=== PATIENT | female | born 1960 | race Caucasian/White ===

== ENCOUNTER 2018-09-29 13:52 | Inpatient (IN) | payer BC ==
[2018-09-29 15:21] LABS: ADD MAN DIFF? NO
[2018-09-29 15:27] LABS: BASOPHILS % 0.2 % (0.0-2.0); EOSINOPHILS % 0.1 % (0.0-7.0); HEMOGLOBIN 14.6 g/dl (12.0-16.0); LYMPHOCYTES # 3.1 10^3/ul (0.8-2.9); LYMPHOCYTES % 29.8 % (15.0-51.0); MEAN CORPUSCULAR HEMOGLOBIN 30.7 pg (29.0-33.0); MEAN CORPUSCULAR HGB CONC 34.8 g/dl (32.0-37.0); MEAN CORPUSCULAR VOLUME 88.4 fl (82.0-101.0); MEAN PLATELET VOLUME 8.8 fl (7.4-10.4); MONOCYTE # 0.4 10^3/ul (0.3-0.9); NEUTROPHIL # 6.8 10^3/ul (1.6-7.5); NEUTROPHILS % 65.4 % (39.0-77.0); PLATELET COUNT 282 10^3/UL (140-415); RED BLOOD COUNT 4.75 10^6/ul (4.20-5.40); RED CELL DISTRIBUTION WIDTH 12.4 % (11.5-14.5)
[2018-09-29 15:27] LABS: WHITE BLOOD COUNT 10.4 10^3/ul (4.8-10.8)
[2018-09-29 15:46] LABS: INR 0.93; PROTIME 12.6 Sec (11.9-14.9)
[2018-09-29 15:48] LABS: ANION GAP 18 (5-13); BLOOD UREA NITROGEN 14 mg/dl (7-20); CALCIUM 9.9 mg/dl (8.4-10.2); CARBON DIOXIDE 21 mmol/L (21-31); CHLORIDE 93 mmol/L (97-110); CREATININE 0.59 mg/dl (0.44-1.00); Estimated GFR > 60 mL/min (>60); GLUCOSE 155 mg/dl (70-220); POTASSIUM 3.1 mmol/L (3.5-5.1); SODIUM 132 mmol/L (135-144)
[2018-09-29 16:00] LABS: TROPONIN-I < 0.012 ng/ml (0.000-0.120)
[2018-09-29] MEDS: POTASSIUM CHLORIDE 100 ML IVPB ×2 (16:15→18:18)
[2018-09-29] MEDS: ONDANSETRON 4 MG INJ IV (17:24)
[2018-09-29] MEDS: morphine 2 MG INJ IV ×2 (17:24→23:13)
[2018-09-29] MEDS: DEXAMETHASONE 10 MG/ML 1 ML INJ IV (17:24)
[2018-09-29] MEDS ORDERED: NACL 0.9% 3 ML SYG IV (17:30)
[2018-09-29] MEDS ORDERED: ONDANSETRON 4 MG TAB PO (17:30)
[2018-09-29] MEDS: DEXTROSE 5%-0.45% NACL 1,000 ML IV (18:18)
[2018-09-29] MEDS: ACETAMINOPHEN 325 MG TAB PO (21:12)
[2018-09-29] MEDS: LEVETIRACETAM 500 MG (PMX) 100 ML IVPB (21:41)
[2018-09-29] MEDS: DEXAMETHASONE 4 MG/ML 1 ML INJ IV (22:48)
[2018-09-29] MEDS ORDERED: ONDANSETRON (ODT) 4 MG TAB ODT (23:30)
[2018-09-30] MEDS: morphine 2 MG INJ IV ×4 (03:23→18:24)
[2018-09-30 05:11] LABS: ADD MAN DIFF? NO
[2018-09-30 05:16] LABS: BASOPHILS % 0.1 % (0.0-2.0); HEMATOCRIT 39.1 % (37.0-47.0); HEMOGLOBIN 13.4 g/dl (12.0-16.0); LYMPHOCYTES # 1.1 10^3/ul (0.8-2.9); LYMPHOCYTES % 14.9 % (15.0-51.0); MEAN CORPUSCULAR HEMOGLOBIN 30.7 pg (29.0-33.0); MEAN CORPUSCULAR HGB CONC 34.3 g/dl (32.0-37.0); MEAN CORPUSCULAR VOLUME 89.5 fl (82.0-101.0); MEAN PLATELET VOLUME 8.6 fl (7.4-10.4); MONOCYTES % 0.4 % (0.0-11.0); NEUTROPHIL # 5.9 10^3/ul (1.6-7.5); NEUTROPHILS % 84.2 % (39.0-77.0); PLATELET COUNT 251 10^3/UL (140-415); RED BLOOD COUNT 4.37 10^6/ul (4.20-5.40); RED CELL DISTRIBUTION WIDTH 12.1 % (11.5-14.5)
[2018-09-30 05:16] LABS: WHITE BLOOD COUNT 7.1 10^3/ul (4.8-10.8)
[2018-09-30] MEDS: ONDANSETRON 4 MG INJ IV ×4 (05:19→22:15)
[2018-09-30 05:39] LABS: ANION GAP 17 (5-13); BLOOD UREA NITROGEN 18 mg/dl (7-20); CALCIUM 9.7 mg/dl (8.4-10.2); CARBON DIOXIDE 25 mmol/L (21-31); CHLORIDE 90 mmol/L (97-110); CREATININE 0.56 mg/dl (0.44-1.00); Estimated GFR > 60 mL/min (>60); GLUCOSE 173 mg/dl (70-220); MAGNESIUM 1.8 mg/dl (1.7-2.5); PHOSPHORUS 4.4 mg/dl (2.5-4.9); POTASSIUM 3.7 mmol/L (3.5-5.1); SODIUM 132 mmol/L (135-144)
[2018-09-30] MEDS: DEXAMETHASONE 4 MG/ML 1 ML INJ IV ×3 (06:32→21:00)
[2018-09-30] MEDS: PANTOPRAZOLE 40 MG INJ IV (06:42)
[2018-09-30] MEDS: LEVETIRACETAM 500 MG (PMX) 100 ML IVPB ×2 (08:34→20:52)
[2018-09-30] MEDS: ACETAMINOPHEN 325 MG TAB PO ×2 (08:37→16:42)
[2018-09-30 09:51] LABS: HEMOGLOBIN A1C 5.5 % (0-5.9)
[2018-09-30] MEDS: SOD CHLORIDE 0.9% 100 ML (14:27)
[2018-09-30] MEDS: IOHEXOL 100 ML (14:27)
[2018-09-30] MEDS: DEXTROSE 5%-0.45% NACL 1,000 ML IV (16:29)
[2018-10-01] MEDS: HYDROmorphONE 1 MG/ML SYG IV ×3 (00:47→22:10)
[2018-10-01] MEDS: ONDANSETRON 4 MG INJ IV ×2 (05:02→09:09)
[2018-10-01] MEDS: PANTOPRAZOLE (EC) 40 MG TAB PO (05:02)
[2018-10-01] MEDS: DEXAMETHASONE 4 MG/ML 1 ML INJ IV ×4 (05:02→23:23)
[2018-10-01 06:42] LABS: ANION GAP 9 (5-13); BLOOD UREA NITROGEN 25 mg/dl (7-20); CALCIUM 9.2 mg/dl (8.4-10.2); CARBON DIOXIDE 26 mmol/L (21-31); CHLORIDE 91 mmol/L (97-110); CREATININE 0.55 mg/dl (0.44-1.00); Estimated GFR > 60 mL/min (>60); GLUCOSE 155 mg/dl (70-220); POTASSIUM 3.3 mmol/L (3.5-5.1); SODIUM 126 mmol/L (135-144)
[2018-10-01] MEDS: KETOROLAC 15 MG INJ IV ×5 (07:32→21:32)
[2018-10-01] MEDS: LEVETIRACETAM 500 MG (PMX) 100 ML IVPB ×2 (09:39→20:37)
[2018-10-01] MEDS: POTASSIUM CHLORIDE 100 ML IVPB ×2 (10:16→10:57)
[2018-10-01] MEDS: SOD CHLORIDE 0.45% 1,000 ML IV (10:57)
[2018-10-01] MEDS: ONDANSETRON INJ 8 MG in DEXTROSE 5% 50 ML IV (12:09)
[2018-10-01 13:24] LABS: SODIUM,URINE RANDOM 164 mmol/L (30-90)
[2018-10-01 14:52] LABS: OSMOLALITY,URINE 893 mOsm/kg (250-1200)
[2018-10-01 16:39] LABS: SODIUM 122 mmol/L (135-144)
[2018-10-01] MEDS: SOD CHLORIDE 0.9% 1,000 ML IV (18:23)
[2018-10-01 19:14] LABS: SODIUM 123 mmol/L (135-144)
[2018-10-02 01:10] LABS: SODIUM 122 mmol/L (135-144)
[2018-10-02] MEDS: SODIUM CHLORIDE 1 GM TAB PO ×2 (03:38→08:11)
[2018-10-02] MEDS: KETOROLAC 15 MG INJ IV ×4 (03:39→21:08)
[2018-10-02] MEDS: PANTOPRAZOLE (EC) 40 MG TAB PO (05:24)
[2018-10-02] MEDS: DEXAMETHASONE 4 MG/ML 1 ML INJ IV ×3 (05:24→20:18)
[2018-10-02 05:46] LABS: ADD MAN DIFF? NO
[2018-10-02 05:48] LABS: WHITE BLOOD COUNT 11.5 10^3/ul (4.8-10.8)
[2018-10-02 05:48] LABS: BASOPHILS % 0.2 % (0.0-2.0); HEMATOCRIT 36.2 % (37.0-47.0); HEMOGLOBIN 12.8 g/dl (12.0-16.0); LYMPHOCYTES # 0.9 10^3/ul (0.8-2.9); LYMPHOCYTES % 7.4 % (15.0-51.0); MEAN CORPUSCULAR HEMOGLOBIN 30.8 pg (29.0-33.0); MEAN CORPUSCULAR HGB CONC 35.4 g/dl (32.0-37.0); MEAN CORPUSCULAR VOLUME 87.2 fl (82.0-101.0); MEAN PLATELET VOLUME 8.8 fl (7.4-10.4); MONOCYTE # 0.5 10^3/ul (0.3-0.9); MONOCYTES % 4.1 % (0.0-11.0); NEUTROPHILS % 87.3 % (39.0-77.0); PLATELET COUNT 260 10^3/UL (140-415); RED BLOOD COUNT 4.15 10^6/ul (4.20-5.40); RED CELL DISTRIBUTION WIDTH 11.9 % (11.5-14.5)
[2018-10-02 06:14] LABS: SODIUM 122 mmol/L (135-144)
[2018-10-02 06:18] LABS: ANION GAP 12 (5-13); BLOOD UREA NITROGEN 22 mg/dl (7-20); CALCIUM 8.9 mg/dl (8.4-10.2); CARBON DIOXIDE 22 mmol/L (21-31); CHLORIDE 89 mmol/L (97-110); CREATININE 0.48 mg/dl (0.44-1.00); Estimated GFR > 60 mL/min (>60); GLUCOSE 134 mg/dl (70-220); POTASSIUM 3.6 mmol/L (3.5-5.1); SODIUM 123 mmol/L (135-144)
[2018-10-02] MEDS: HYDROmorphONE 1 MG/ML SYG IV (06:55)
[2018-10-02 07:09] LABS: MAGNESIUM 1.9 mg/dl (1.7-2.5)
[2018-10-02] MEDS: LEVETIRACETAM 500 MG (PMX) 100 ML IVPB (08:11)
[2018-10-02 12:31] LABS: SODIUM 122 mmol/L (135-144)
[2018-10-02] MEDS: TOLVAPTAN 15 MG TABLET PO (15:52)
[2018-10-02 16:13] LABS: SODIUM 121 mmol/L (135-144)
[2018-10-02 16:17] LABS: ASPARTATE AMINO TRANSFERASE 22 IU/L (15-46)
[2018-10-02 16:17] LABS: ALANINE AMINOTRANSFERASE 25 IU/L (13-69)
[2018-10-02] MEDS ORDERED: SODIUM CHLORIDE 1 GM TAB PO (21:00)
[2018-10-02] MEDS: LEVETIRACETAM IV 500 MG in DEXTROSE 5% 100 ML IVPB (21:13)
[2018-10-02 23:19] LABS: SODIUM 132 mmol/L (135-144)
[2018-10-03] MEDS: DEXAMETHASONE 4 MG/ML 1 ML INJ IV ×4 (00:16→21:11)
[2018-10-03] MEDS: KETOROLAC 15 MG INJ IV ×2 (04:51→10:00)
[2018-10-03] MEDS: PANTOPRAZOLE (EC) 40 MG TAB PO (05:00)
[2018-10-03] MEDS: LEVETIRACETAM IV 500 MG in DEXTROSE 5% 100 ML IVPB ×2 (09:26→21:11)
[2018-10-03 09:37] LABS: SODIUM 136 mmol/L (135-144)
[2018-10-03] MEDS ORDERED: KETOROLAC 15 MG INJ IV (16:00)
[2018-10-03] MEDS: DEXTROSE 5% 1,000 ML IV (17:05)
[2018-10-03 18:06] LABS: SODIUM 139 mmol/L (135-144)
[2018-10-03 22:58] LABS: SODIUM 133 mmol/L (135-144)
[2018-10-04] MEDS: ZOLPIDEM 5 MG TAB PO ×2 (00:15→20:59)
[2018-10-04] MEDS: DEXAMETHASONE 4 MG/ML 1 ML INJ IV ×3 (05:12→21:00)
[2018-10-04] MEDS: PANTOPRAZOLE (EC) 40 MG TAB PO (05:13)
[2018-10-04 05:27] LABS: ADD MAN DIFF? NO
[2018-10-04 05:30] LABS: BASOPHILS % 0.2 % (0.0-2.0); HEMATOCRIT 43.8 % (37.0-47.0); HEMOGLOBIN 15.5 g/dl (12.0-16.0); LYMPHOCYTES # 1.2 10^3/ul (0.8-2.9); LYMPHOCYTES % 10.5 % (15.0-51.0); MEAN CORPUSCULAR HEMOGLOBIN 31.1 pg (29.0-33.0); MEAN CORPUSCULAR HGB CONC 35.4 g/dl (32.0-37.0); MEAN CORPUSCULAR VOLUME 87.8 fl (82.0-101.0); MEAN PLATELET VOLUME 8.7 fl (7.4-10.4); MONOCYTE # 0.7 10^3/ul (0.3-0.9); MONOCYTES % 6.3 % (0.0-11.0); NEUTROPHIL # 9.1 10^3/ul (1.6-7.5); NEUTROPHILS % 82.3 % (39.0-77.0); PLATELET COUNT 310 10^3/UL (140-415); RED BLOOD COUNT 4.99 10^6/ul (4.20-5.40); RED CELL DISTRIBUTION WIDTH 12.7 % (11.5-14.5)
[2018-10-04 05:30] LABS: WHITE BLOOD COUNT 11.1 10^3/ul (4.8-10.8)
[2018-10-04 06:18] LABS: ANION GAP 11 (5-13); BLOOD UREA NITROGEN 37 mg/dl (7-20); CALCIUM 9.5 mg/dl (8.4-10.2); CARBON DIOXIDE 22 mmol/L (21-31); CHLORIDE 99 mmol/L (97-110); CREATININE 0.73 mg/dl (0.44-1.00); Estimated GFR > 60 mL/min (>60); GLUCOSE 142 mg/dl (70-220); POTASSIUM 3.4 mmol/L (3.5-5.1); SODIUM 132 mmol/L (135-144)
[2018-10-04] MEDS: LEVETIRACETAM IV 500 MG in DEXTROSE 5% 100 ML IVPB (08:48)
[2018-10-04] MEDS: POTASSIUM CHLORIDE 20 MEQ POWDER FOR ORAL SOLN GTB (13:55)
[2018-10-04] MEDS: DOCUSATE SODIUM 100 MG CAP PO (16:11)
[2018-10-04] MEDS: LEVETIRACETAM 500 MG TAB PO (20:59)
[2018-10-05 05:09] LABS: ADD MAN DIFF? NO
[2018-10-05 05:19] LABS: BASOPHILS % 0.2 % (0.0-2.0); HEMATOCRIT 43.5 % (37.0-47.0); HEMOGLOBIN 14.8 g/dl (12.0-16.0); LYMPHOCYTES # 1.1 10^3/ul (0.8-2.9); LYMPHOCYTES % 10.1 % (15.0-51.0); MEAN CORPUSCULAR HEMOGLOBIN 31.2 pg (29.0-33.0); MEAN CORPUSCULAR VOLUME 91.8 fl (82.0-101.0); MEAN PLATELET VOLUME 8.7 fl (7.4-10.4); MONOCYTE # 0.6 10^3/ul (0.3-0.9); MONOCYTES % 5.9 % (0.0-11.0); NEUTROPHIL # 8.7 10^3/ul (1.6-7.5); PLATELET COUNT 299 10^3/UL (140-415); RED BLOOD COUNT 4.74 10^6/ul (4.20-5.40); RED CELL DISTRIBUTION WIDTH 12.9 % (11.5-14.5)
[2018-10-05 05:19] LABS: WHITE BLOOD COUNT 10.5 10^3/ul (4.8-10.8)
[2018-10-05] MEDS: PANTOPRAZOLE (EC) 40 MG TAB PO (05:26)
[2018-10-05] MEDS: DEXAMETHASONE 4 MG/ML 1 ML INJ IV ×3 (05:26→21:04)
[2018-10-05 05:38] LABS: ANION GAP 10 (5-13); BLOOD UREA NITROGEN 35 mg/dl (7-20); CALCIUM 9.2 mg/dl (8.4-10.2); CARBON DIOXIDE 21 mmol/L (21-31); CHLORIDE 107 mmol/L (97-110); CREATININE 0.63 mg/dl (0.44-1.00); Estimated GFR > 60 mL/min (>60); GLUCOSE 157 mg/dl (70-220); POTASSIUM 3.9 mmol/L (3.5-5.1); SODIUM 138 mmol/L (135-144)
[2018-10-05] MEDS: LEVETIRACETAM 500 MG TAB PO ×2 (08:28→21:04)
[2018-10-05] MEDS: ZOLPIDEM 5 MG TAB PO (21:04)
[2018-10-06] MEDS: PANTOPRAZOLE (EC) 40 MG TAB PO (05:09)
[2018-10-06] MEDS: DEXAMETHASONE 4 MG/ML 1 ML INJ IV ×3 (05:10→22:47)
[2018-10-06] MEDS: LEVETIRACETAM 500 MG TAB PO ×2 (08:16→21:41)
[2018-10-06] MEDS: ZOLPIDEM 5 MG TAB PO (21:41)
[2018-10-07] MEDS: DEXAMETHASONE 4 MG/ML 1 ML INJ IV ×2 (05:59→13:53)
[2018-10-07] MEDS: PANTOPRAZOLE (EC) 40 MG TAB PO (05:59)
[2018-10-07 07:03] LABS: ANION GAP 9 (5-13); BLOOD UREA NITROGEN 23 mg/dl (7-20); CALCIUM 8.9 mg/dl (8.4-10.2); CARBON DIOXIDE 26 mmol/L (21-31); CHLORIDE 101 mmol/L (97-110); CREATININE 0.58 mg/dl (0.44-1.00); Estimated GFR > 60 mL/min (>60); GLUCOSE 127 mg/dl (70-220); SODIUM 136 mmol/L (135-144)
[2018-10-07] MEDS: LEVETIRACETAM 500 MG TAB PO ×2 (08:46→20:58)
[2018-10-07 10:56] LABS: LEVETIRACETAM 14.5 mcg/mL
[2018-10-07] MEDS: DEXAMETHASONE 4 MG TAB PO (20:58)
[2018-10-07] MEDS: ZOLPIDEM 5 MG TAB PO (20:59)
[2018-10-08] MEDS: PANTOPRAZOLE (EC) 40 MG TAB PO (05:44)
[2018-10-08] MEDS: DEXAMETHASONE 4 MG TAB PO ×3 (08:52→22:40)
[2018-10-08] MEDS: LEVETIRACETAM 500 MG TAB PO ×2 (08:52→20:59)
[2018-10-08] MEDS: ACETAMINOPHEN 325 MG TAB PO ×2 (11:44→21:16)
[2018-10-09] MEDS: PANTOPRAZOLE (EC) 40 MG TAB PO (06:19)
[2018-10-09] MEDS: LEVETIRACETAM 500 MG TAB PO (10:42)
[2018-10-09] MEDS: DEXAMETHASONE 4 MG TAB PO ×2 (10:42→13:31)
== END 2018-10-09 17:47 | disposition home or self-care (01) | DRG 54 ==
LOC: 6WM 09-30 16:00 → ICU 10-02 15:00 → 2NE 10-06 18:00 → 6WM 10-03 16:20 → ICU 10-02 15:05 → E/R 13:52 → ICU 16:47
DX: C79.31 Secondary malignant neoplasm of brain (principal); G93.6 Cerebral edema; G93.41 Metabolic encephalopathy; C79.32 Secondary malignant neoplasm of cerebral meninges; E22.2 Syndrome of inappropriate secretion of antidiuretic hormone; I10 Essential (primary) hypertension; R73.03 Prediabetes; E87.6 Hypokalemia; Z90.11 Acquired absence of right breast and nipple; Z85.3 Personal history of malignant neoplasm of breast; Z79.82 Long term (current) use of aspirin
CPT/HCPCS: 36415; 70450; 70553; 71045; 71260; 74177; 77014; 77290; 77334; 77412; 80048; 80177; 83036; 83735; 83935; 84100; 84295; 84300; 84450; 84460; 84484; 85025; 85610; 85730; 97110; 97116; 97162; 97530; 99291-25

== ENCOUNTER 2018-11-25 09:12 | Emergency (ER) | payer BC ==
[2018-11-25] MEDS: ONDANSETRON (ODT) 4 MG TAB ODT (09:52)
[2018-11-25] MEDS: SOD CHLORIDE 0.9% 1,000 ML IV (09:53)
[2018-11-25] MEDS: HYDROCODONE/APAP (10/325) TAB PO (09:53)
[2018-11-25 10:01] LABS: ADD MAN DIFF? NO
[2018-11-25 10:03] LABS: BASOPHILS % 0.2 % (0.0-2.0); HEMATOCRIT 38.8 % (37.0-47.0); HEMOGLOBIN 13.3 g/dl (12.0-16.0); LYMPHOCYTES # 0.8 10^3/ul (0.8-2.9); LYMPHOCYTES % 12.6 % (15.0-51.0); MEAN CORPUSCULAR HEMOGLOBIN 31.6 pg (29.0-33.0); MEAN CORPUSCULAR HGB CONC 34.3 g/dl (32.0-37.0); MEAN CORPUSCULAR VOLUME 92.2 fl (82.0-101.0); MEAN PLATELET VOLUME 8.1 fl (7.4-10.4); MONOCYTE # 0.3 10^3/ul (0.3-0.9); MONOCYTES % 4.8 % (0.0-11.0); NEUTROPHIL # 5.1 10^3/ul (1.6-7.5); NEUTROPHILS % 77.8 % (39.0-77.0); NUCLEATED RED BLOOD CELLS # 0.1 10^3/ul (0.0-0.0); NUCLEATED RED BLOOD CELLS% 0.9 /100WBC (0.0-0.0); PLATELET COUNT 120 10^3/UL (140-415); RED BLOOD COUNT 4.21 10^6/ul (4.20-5.40); RED CELL DISTRIBUTION WIDTH 17.7 % (11.5-14.5)
[2018-11-25 10:03] LABS: WHITE BLOOD COUNT 6.5 10^3/ul (4.8-10.8)
[2018-11-25 10:24] LABS: ANION GAP 6 (5-13); BLOOD UREA NITROGEN 14 mg/dl (7-20); CALCIUM 8.7 mg/dl (8.4-10.2); CARBON DIOXIDE 30 mmol/L (21-31); CHLORIDE 95 mmol/L (97-110); CREATININE 0.46 mg/dl (0.44-1.00); Estimated GFR > 60 mL/min (>60); GLUCOSE 92 mg/dl (70-220); SODIUM 131 mmol/L (135-144)
[2018-11-25 10:27] LABS: POTASSIUM 2.9 mmol/L (3.5-5.1)
[2018-11-25] MEDS: POTASSIUM CHLORIDE (SR) 20 MEQ TAB PO (10:46)
[2018-11-25 11:21] LABS: ADD UMIC YES; UR ASCORBIC ACID NEGATIVE (NEGATIVE); UR BILIRUBIN (Dip) NEGATIVE (NEGATIVE); UR BLOOD (Dip) 1+ mg/dL (NEGATIVE); UR CLARITY CLEAR (CLEAR); UR COLOR STRAW (YELLOW); UR GLUCOSE (Dip) NEGATIVE (NEGATIVE); UR KETONES (Dip) NEGATIVE (NEGATIVE); UR LEUKOCYTE ESTERASE (Dip) NEGATIVE Leu/ul (NEGATIVE); UR NITRITE (Dip) NEGATIVE (NEGATIVE); UR RBC 2 /HPF (0-5); UR SPECIFIC GRAVITY (Dip) 1.006 (1.003-1.030); UR TOTAL PROTEIN (Dip) NEGATIVE (NEGATIVE); UR UROBILINOGEN (Dip) NEGATIVE (NEGATIVE); UR WBC 1 /HPF (0-5)
== END 2018-11-25 11:32 | disposition home or self-care (01) ==
LOC: E/R 09:12
DX: R51 Headache (principal); R53.1 Weakness; E87.6 Hypokalemia; I10 Essential (primary) hypertension
CPT/HCPCS: 36415; 70450; 80048; 81001; 85025; 86850; 86900; 86901; 99285-25

== ENCOUNTER 2018-11-25 21:59 | Inpatient (IN) | payer BC ==
[2018-11-25] MEDS: SOD CHLORIDE 0.9% 500 ML IV (23:02)
[2018-11-25] MEDS: ONDANSETRON 4 MG INJ IV (23:02)
[2018-11-25 23:07] LABS: ADD MAN DIFF? NO
[2018-11-25 23:08] LABS: ABNORMAL IP MESSAGE 1; BASOPHILS % 0.6 % (0.0-2.0); EOSINOPHILS % 0.2 % (0.0-7.0); HEMATOCRIT 34.8 % (37.0-47.0); HEMOGLOBIN 12.1 g/dl (12.0-16.0); LYMPHOCYTES # 0.4 10^3/ul (0.8-2.9); LYMPHOCYTES % 8.2 % (15.0-51.0); MEAN CORPUSCULAR HEMOGLOBIN 32.4 pg (29.0-33.0); MEAN CORPUSCULAR HGB CONC 34.8 g/dl (32.0-37.0); MEAN CORPUSCULAR VOLUME 93.3 fl (82.0-101.0); MEAN PLATELET VOLUME 7.6 fl (7.4-10.4); MONOCYTE # 0.3 10^3/ul (0.3-0.9); MONOCYTES % 5.5 % (0.0-11.0); NEUTROPHIL # 4.2 10^3/ul (1.6-7.5); NEUTROPHILS % 81.4 % (39.0-77.0); NUCLEATED RED BLOOD CELLS% 0.4 /100WBC (0.0-0.0); PLATELET COUNT 81 10^3/UL (140-415); RED BLOOD COUNT 3.73 10^6/ul (4.20-5.40)
[2018-11-25 23:08] LABS: WHITE BLOOD COUNT 5.1 10^3/ul (4.8-10.8)
[2018-11-25 23:34] LABS: ALANINE AMINOTRANSFERASE 33 IU/L (13-69); ALBUMIN 3.3 g/dl (3.3-4.9); ALBUMIN/GLOBULIN RATIO 1.32; ALKALINE PHOSPHATASE 96 IU/L (42-121); ANION GAP 10 (5-13); ASPARTATE AMINO TRANSFERASE 27 IU/L (15-46); BLOOD UREA NITROGEN 11 mg/dl (7-20); CALCIUM 8.4 mg/dl (8.4-10.2); CARBON DIOXIDE 26 mmol/L (21-31); CREATININE 0.34 mg/dl (0.44-1.00); Estimated GFR > 60 mL/min (>60); GLUCOSE 101 mg/dl (70-220); SODIUM 121 mmol/L (135-144); TOTAL PROTEIN 5.8 g/dl (6.1-8.1)
[2018-11-25 23:37] LABS: POSITIVE DIFF @See below
[2018-11-25 23:41] LABS: POTASSIUM 2.8 mmol/L (3.5-5.1)
[2018-11-25 23:42] LABS: CHLORIDE 85 mmol/L (97-110)
[2018-11-25 23:45] LABS: B-TYPE NATRIURETIC PEPTIDE 101 PG/ML (0-125); TROPONIN-I < 0.012 ng/ml (0.000-0.120)
[2018-11-26] MEDS: POTASSIUM CHLORIDE 100 ML IVPB ×4 (00:18→09:54)
[2018-11-26] MEDS ORDERED: HYDROCODONE/APAP (10/325) TAB PO (04:30)
[2018-11-26] MEDS ORDERED: NON-FORMULARY/PATIENT OWN MED (Naloxone HCl nasal spray (Narcan 4 mg/0.1 mL nasal) 4 MG) XX (04:30)
[2018-11-26] MEDS ORDERED: LAPATINIB 250 MG PO (04:30)
[2018-11-26] MEDS ORDERED: ACETAMINOPHEN 325 MG TAB PO (05:00)
[2018-11-26 06:12] LABS: B-TYPE NATRIURETIC PEPTIDE 104 PG/ML (0-125)
[2018-11-26 06:16] LABS: CK-MB 0.38 ng/ml (0.0-2.4); TROPONIN-I < 0.012 ng/ml (0.000-0.120)
[2018-11-26] MEDS: PANTOPRAZOLE 40 MG INJ IV (06:23)
[2018-11-26 06:33] LABS: CREATINE KINASE < 20 IU/L (23-200)
[2018-11-26] MEDS ORDERED: CAPECITABINE 500 MG TAB PO (09:00)
[2018-11-26] MEDS: MEMANTINE 5 MG TAB PO (09:54)
[2018-11-26 10:24] LABS: ANION GAP 7 (5-13); BLOOD UREA NITROGEN 9 mg/dl (7-20); CALCIUM 9.4 mg/dl (8.4-10.2); CARBON DIOXIDE 29 mmol/L (21-31); CHLORIDE 95 mmol/L (97-110); CREATININE 0.51 mg/dl (0.44-1.00); Estimated GFR > 60 mL/min (>60); GLUCOSE 112 mg/dl (70-220); POTASSIUM 5.1 mmol/L (3.5-5.1); SODIUM 131 mmol/L (135-144)
[2018-11-26 10:36] LABS: CK-MB 0.35 ng/ml (0.0-2.4); TROPONIN-I < 0.012 ng/ml (0.000-0.120)
[2018-11-26 10:46] LABS: CREATINE KINASE < 20 IU/L (23-200)
[2018-11-26 12:30] LABS: SODIUM,URINE RANDOM 14 mmol/L (30-90)
[2018-11-26 13:17] LABS: OSMOLALITY,URINE 111 mOsm/kg (250-1200)
[2018-11-26 19:04] LABS: SODIUM 133 mmol/L (135-144)
[2018-11-26] MEDS: METOPROLOL (XL) 25 MG TAB PO (20:14)
[2018-11-26] MEDS: ONDANSETRON 4 MG INJ IV (20:14)
[2018-11-26] MEDS: TYKERB PO (21:39)
[2018-11-26] MEDS: [UNRECOGNIZED DRUG - OTHER] PO (21:39)
[2018-11-27] MEDS: PANTOPRAZOLE (EC) 40 MG TAB PO (05:22)
[2018-11-27] MEDS: TYKERB PO ×5 (07:00→15:00)
[2018-11-27] MEDS: [UNRECOGNIZED DRUG - OTHER] PO ×5 (07:00→15:00)
[2018-11-27 08:03] LABS: ANION GAP 6 (5-13); BLOOD UREA NITROGEN 8 mg/dl (7-20); CALCIUM 8.7 mg/dl (8.4-10.2); CARBON DIOXIDE 31 mmol/L (21-31); CHLORIDE 95 mmol/L (97-110); Estimated GFR > 60 mL/min (>60); GLUCOSE 101 mg/dl (70-220); POTASSIUM 4.8 mmol/L (3.5-5.1); SODIUM 132 mmol/L (135-144)
[2018-11-27] MEDS: ONDANSETRON 4 MG INJ IV ×3 (08:04→21:34)
[2018-11-27 08:08] LABS: PHOSPHORUS 2.9 mg/dl (2.5-4.9)
[2018-11-27] MEDS: SPECIAL NON-STANDARD MEDICATION (CHEMO) PO (09:00)
[2018-11-27] MEDS: MEMANTINE 5 MG TAB PO (09:42)
[2018-11-27] MEDS ORDERED: LORAZEPAM 0.5 MG TAB PO (14:00)
[2018-11-27] MEDS ORDERED: ONDANSETRON 4 MG INJ (15:15)
[2018-11-27] MEDS: LORAZEPAM 0.5 MG TAB PO ×2 (15:19→21:34)
[2018-11-27] MEDS: METOPROLOL (XL) 25 MG TAB PO ×2 (15:21→21:34)
[2018-11-27] MEDS: ENOXAPARIN 40 MG/0.4 ML SYG SC (16:36)
[2018-11-27] MEDS: SOD CHLORIDE 0.9% 1,000 ML IV (16:39)
[2018-11-27] MEDS ORDERED: ONDANSETRON 4 MG INJ IV (18:00)
[2018-11-27 18:54] LABS: SODIUM 134 mmol/L (135-144)
[2018-11-28] MEDS: SPECIAL NON-STANDARD MEDICATION (CHEMO) PO ×5 (01:03→21:00)
[2018-11-28] MEDS: PANTOPRAZOLE (EC) 40 MG TAB PO (06:11)
[2018-11-28] MEDS: ONDANSETRON 4 MG INJ IV ×3 (06:11→20:54)
[2018-11-28] MEDS: TYKERB PO (07:21)
[2018-11-28] MEDS: [UNRECOGNIZED DRUG - OTHER] PO (07:21)
[2018-11-28 07:47] LABS: D-DIMER 1848.85 ng/ml (<460)
[2018-11-28 08:06] LABS: ANION GAP 6 (5-13); BLOOD UREA NITROGEN 7 mg/dl (7-20); CALCIUM 8.1 mg/dl (8.4-10.2); CARBON DIOXIDE 28 mmol/L (21-31); CHLORIDE 99 mmol/L (97-110); Estimated GFR > 60 mL/min (>60); GLUCOSE 89 mg/dl (70-220); POTASSIUM 3.2 mmol/L (3.5-5.1); SODIUM 133 mmol/L (135-144)
[2018-11-28] MEDS: MEMANTINE 5 MG TAB PO (09:38)
[2018-11-28] MEDS: ENOXAPARIN 40 MG/0.4 ML SYG SC (09:42)
[2018-11-28] MEDS: SOD CHLORIDE 0.9% 100 ML (11:07)
[2018-11-28] MEDS: IOHEXOL 100 ML (11:07)
[2018-11-28] MEDS: SOD CHLORIDE 0.9% 1,000 ML IV ×2 (11:34→20:54)
[2018-11-28] MEDS: POTASSIUM CHLORIDE (SR) 20 MEQ TAB PO (11:34)
[2018-11-28] MEDS ORDERED: SPECIAL NON-STANDARD MEDICATION (CHEMO) PO (12:52)
[2018-11-28] MEDS: LORAZEPAM 2 MG INJ IV (14:55)
[2018-11-28] MEDS: METOPROLOL (XL) 25 MG TAB PO (21:00)
[2018-11-29] MEDS: PANTOPRAZOLE (EC) 40 MG TAB PO (05:52)
[2018-11-29] MEDS: ONDANSETRON 4 MG INJ IV ×2 (05:52→14:11)
[2018-11-29 06:42] LABS: ADD MAN DIFF? NO
[2018-11-29 06:45] LABS: WHITE BLOOD COUNT 3.2 10^3/ul (4.8-10.8)
[2018-11-29 06:45] LABS: ABNORMAL IP MESSAGE 1; BASOPHILS % 0.3 % (0.0-2.0); HEMATOCRIT 31.1 % (37.0-47.0); HEMOGLOBIN 10.7 g/dl (12.0-16.0); LYMPHOCYTES # 0.5 10^3/ul (0.8-2.9); LYMPHOCYTES % 15.4 % (15.0-51.0); MEAN CORPUSCULAR HEMOGLOBIN 32.2 pg (29.0-33.0); MEAN CORPUSCULAR HGB CONC 34.4 g/dl (32.0-37.0); MEAN CORPUSCULAR VOLUME 93.7 fl (82.0-101.0); MEAN PLATELET VOLUME 7.7 fl (7.4-10.4); MONOCYTE # 0.2 10^3/ul (0.3-0.9); MONOCYTES % 6.9 % (0.0-11.0); NEUTROPHIL # 2.4 10^3/ul (1.6-7.5); NEUTROPHILS % 76.5 % (39.0-77.0); PLATELET COUNT 77 10^3/UL (140-415); RED BLOOD COUNT 3.32 10^6/ul (4.20-5.40); RED CELL DISTRIBUTION WIDTH 17.7 % (11.5-14.5)
[2018-11-29 07:00] LABS: POSITIVE DIFF @See below
[2018-11-29 07:12] LABS: ANION GAP 7 (5-13); BLOOD UREA NITROGEN 5 mg/dl (7-20); CALCIUM 7.8 mg/dl (8.4-10.2); CARBON DIOXIDE 25 mmol/L (21-31); CHLORIDE 99 mmol/L (97-110); CREATININE 0.42 mg/dl (0.44-1.00); Estimated GFR > 60 mL/min (>60); GLUCOSE 96 mg/dl (70-220); POTASSIUM 3.3 mmol/L (3.5-5.1); SODIUM 131 mmol/L (135-144)
[2018-11-29] MEDS: METOPROLOL (XL) 25 MG TAB PO (10:18)
[2018-11-29] MEDS: MEMANTINE 5 MG TAB PO (10:18)
[2018-11-29] MEDS: ENOXAPARIN 40 MG/0.4 ML SYG SC (10:20)
[2018-11-29] MEDS: SPECIAL NON-STANDARD MEDICATION (CHEMO) PO ×2 (10:21)
[2018-11-29] MEDS: SOD CHLORIDE 0.9% 1,000 ML IV (10:29)
[2018-11-29] MEDS: POTASSIUM CHLORIDE 20 MEQ POWDER FOR ORAL SOLN PO (15:40)
[2018-11-29] MEDS: HEPARIN (100 UNITS/ML) 5 ML SYG CATHETER (16:43)
== END 2018-11-29 16:27 | disposition home or self-care (01) | DRG 641 ==
LOC: E/R 21:59 → TEL 11-26 00:36
DX: E87.6 Hypokalemia (principal); C79.31 Secondary malignant neoplasm of brain; E22.2 Syndrome of inappropriate secretion of antidiuretic hormone; R11.2 Nausea with vomiting, unspecified; T45.1X5A Adverse effect of antineoplastic and immunosuppressive drugs, initial encounter; I10 Essential (primary) hypertension; R73.03 Prediabetes; F41.9 Anxiety disorder, unspecified; E86.0 Dehydration; E66.3 Overweight; C50.911 Malignant neoplasm of unspecified site of right female breast; Z68.28 Body mass index [BMI] 28.0-28.9, adult
CPT/HCPCS: 36415; 70552; 71045; 71275; 80048; 80053; 82550; 82553; 83735; 83880; 83935; 84100; 84295; 84300; 84443; 84484; 85025; 85378; 93005; 96374; 99285-25

== ENCOUNTER 2018-12-13 01:25 | Emergency (ER) | payer BC ==
[2018-12-13 02:30] LABS: WHITE BLOOD COUNT 4.5 10^3/ul (4.8-10.8)
[2018-12-13 02:30] LABS: HEMATOCRIT 35.7 % (37.0-47.0); HEMOGLOBIN 12.1 g/dl (12.0-16.0); MEAN CORPUSCULAR HEMOGLOBIN 32.3 pg (29.0-33.0); MEAN CORPUSCULAR HGB CONC 33.9 g/dl (32.0-37.0); MEAN CORPUSCULAR VOLUME 95.2 fl (82.0-101.0); MEAN PLATELET VOLUME 7.7 fl (7.4-10.4); PLATELET COUNT 213 10^3/UL (140-415); RED BLOOD COUNT 3.75 10^6/ul (4.20-5.40); RED CELL DISTRIBUTION WIDTH 19.4 % (11.5-14.5)
[2018-12-13] MEDS: ONDANSETRON 4 MG INJ IV (02:48)
[2018-12-13] MEDS: OXYCODONE/ACETAMINOPHEN (5/325) TAB PO (02:48)
[2018-12-13] MEDS: SOD CHLORIDE 0.9% 500 ML IV (02:48)
[2018-12-13] MEDS: KETOROLAC 15 MG INJ IV (02:48)
[2018-12-13 02:50] LABS: ALANINE AMINOTRANSFERASE 28 IU/L (13-69); ALBUMIN 3.2 g/dl (3.3-4.9); ALKALINE PHOSPHATASE 105 IU/L (42-121); ANION GAP 6 (5-13); ASPARTATE AMINO TRANSFERASE 21 IU/L (15-46); BILIRUBIN,INDIRECT 0.8 mg/dl (0-1.1); BILIRUBIN,TOTAL 0.8 mg/dl (0.2-1.3); BLOOD UREA NITROGEN 7 mg/dl (7-20); CALCIUM 9.3 mg/dl (8.4-10.2); CARBON DIOXIDE 32 mmol/L (21-31); CHLORIDE 101 mmol/L (97-110); CREATININE 0.56 mg/dl (0.44-1.00); Estimated GFR > 60 mL/min (>60); GLUCOSE 92 mg/dl (70-220); LIPASE 191 U/L (23-300); POTASSIUM 4.1 mmol/L (3.5-5.1); SODIUM 139 mmol/L (135-144); TOTAL PROTEIN 6.1 g/dl (6.1-8.1)
[2018-12-13 02:59] LABS: ADD MAN DIFF? YES
[2018-12-13 03:11] LABS: ADD UMIC YES; UR ASCORBIC ACID NEGATIVE (NEGATIVE); UR BILIRUBIN (Dip) NEGATIVE (NEGATIVE); UR BLOOD (Dip) 1+ mg/dL (NEGATIVE); UR CLARITY CLEAR (CLEAR); UR COLOR RED (YELLOW); UR GLUCOSE (Dip) NEGATIVE (NEGATIVE); UR KETONES (Dip) NEGATIVE (NEGATIVE); UR LEUKOCYTE ESTERASE (Dip) TRACE Leu/ul (NEGATIVE); UR NITRITE (Dip) NEGATIVE (NEGATIVE); UR RBC 1 /HPF (0-5); UR SPECIFIC GRAVITY (Dip) 1.004 (1.003-1.030); UR TOTAL PROTEIN (Dip) NEGATIVE (NEGATIVE); UR UROBILINOGEN (Dip) NEGATIVE (NEGATIVE); UR WBC 4 /HPF (0-5)
[2018-12-13 05:36] LABS: ANISOCYTOSIS 1+ (0-0); BASOPHILS % (M) 1 % (0-2); ERYTHROBLAST% (NRBC) (M) 3 % (0-0); LYMPHOCYTES #M 0.9 10^3/ul (0.8-2.9); LYMPHOCYTES % (M) 21 % (15-51); MICROCYTOSIS 1+ (0-0); MONOCYTE #M 0.6 10^3/ul (0.3-0.9); MONOCYTES % (M) 15 % (0-11); MYELOCYTES % (M) 2 % (0-0); PLATELET ESTIMATE NORMAL; POLYCHROMASIA 2+ (0-0); SEGMENTED NEUTROPHILS (M) % 61 % (39-77); SMUDGE%M 9 % (0-0)
== END 2018-12-13 04:24 | disposition home or self-care (01) ==
LOC: E/R 01:25
DX: C79.81 Secondary malignant neoplasm of breast (principal); I10 Essential (primary) hypertension; E11.9 Type 2 diabetes mellitus without complications; N39.0 Urinary tract infection, site not specified; G44.209 Tension-type headache, unspecified, not intractable
CPT/HCPCS: 36415; 70450; 80053; 81001; 83690; 85025; 96374; 96375; 99285-25

== ENCOUNTER 2019-01-15 20:25 | Inpatient (IN) | payer BC ==
[2019-01-15 21:25] LABS: ADD MAN DIFF? NO
[2019-01-15] MEDS: morphine 4 MG/ML VIAL IV (21:26)
[2019-01-15] MEDS: ONDANSETRON 4 MG INJ IV (21:26)
[2019-01-15] MEDS: CEFEPIME 2GM/50 ML (PMX) 50 ML IVPB (21:26)
[2019-01-15] MEDS: SODIUM CHLORIDE 0.9% 1L BAG IV* (21:26)
[2019-01-15 21:34] LABS: WHITE BLOOD COUNT 5.3 10^3/ul (4.8-10.8)
[2019-01-15 21:34] LABS: BASOPHILS % 0.2 % (0.0-2.0); EOSINOPHILS % 0.4 % (0.0-7.0); HEMATOCRIT 43.6 % (37.0-47.0); HEMOGLOBIN 14.6 g/dl (12.0-16.0); LYMPHOCYTES # 2.4 10^3/ul (0.8-2.9); LYMPHOCYTES % 44.8 % (15.0-51.0); MEAN CORPUSCULAR HEMOGLOBIN 33.1 pg (29.0-33.0); MEAN CORPUSCULAR HGB CONC 33.5 g/dl (32.0-37.0); MEAN CORPUSCULAR VOLUME 98.9 fl (82.0-101.0); MEAN PLATELET VOLUME 8.6 fl (7.4-10.4); MONOCYTE # 0.6 10^3/ul (0.3-0.9); MONOCYTES % 11.2 % (0.0-11.0); NEUTROPHIL # 2.3 10^3/ul (1.6-7.5); NEUTROPHILS % 43.2 % (39.0-77.0); PLATELET COUNT 332 10^3/UL (140-415); RED BLOOD COUNT 4.41 10^6/ul (4.20-5.40); RED CELL DISTRIBUTION WIDTH 17.8 % (11.5-14.5)
[2019-01-15 21:49] LABS: ADD UMIC YES; UR ASCORBIC ACID NEGATIVE (NEGATIVE); UR BACTERIA FEW /HPF (NONE SEEN); UR BILIRUBIN (Dip) NEGATIVE (NEGATIVE); UR BLOOD (Dip) 2+ mg/dL (NEGATIVE); UR CLARITY CLEAR (CLEAR); UR COLOR YELLOW (YELLOW); UR GLUCOSE (Dip) NEGATIVE (NEGATIVE); UR KETONES (Dip) NEGATIVE (NEGATIVE); UR LEUKOCYTE ESTERASE (Dip) 2+ Leu/ul (NEGATIVE); UR NITRITE (Dip) NEGATIVE (NEGATIVE); UR RBC 1 /HPF (0-5); UR SPECIFIC GRAVITY (Dip) 1.004 (1.003-1.030); UR TOTAL PROTEIN (Dip) NEGATIVE (NEGATIVE); UR UROBILINOGEN (Dip) NEGATIVE (NEGATIVE); UR WBC 15 /HPF (0-5)
[2019-01-15 21:54] LABS: PROTIME 12.3 Sec (11.9-14.9)
[2019-01-15 21:55] LABS: ALANINE AMINOTRANSFERASE 24 IU/L (13-69); ALBUMIN 3.7 g/dl (3.3-4.9); ALBUMIN/GLOBULIN RATIO 1.15; ALKALINE PHOSPHATASE 92 IU/L (42-121); ANION GAP 12 (5-13); ASPARTATE AMINO TRANSFERASE 38 IU/L (15-46); BILIRUBIN,INDIRECT 1.1 mg/dl (0-1.1); BILIRUBIN,TOTAL 1.1 mg/dl (0.2-1.3); BLOOD UREA NITROGEN 6 mg/dl (7-20); CALCIUM 9.4 mg/dl (8.4-10.2); CARBON DIOXIDE 25 mmol/L (21-31); CHLORIDE 98 mmol/L (97-110); CREATININE 0.58 mg/dl (0.44-1.00); Estimated GFR > 60 mL/min (>60); GLUCOSE 117 mg/dl (70-220); PARTIAL THROMBOPLASTIN TIME 26.8 Sec (23.0-35.0); POTASSIUM 3.6 mmol/L (3.5-5.1); SODIUM 135 mmol/L (135-144); TOTAL PROTEIN 6.9 g/dl (6.1-8.1)
[2019-01-15 22:03] LABS: TROPONIN-I < 0.012 ng/ml (0.000-0.120)
[2019-01-15] MEDS: VANCOMYCIN 1 GM (PMX) 250 ML IVPB (22:04)
[2019-01-15 23:26] LABS: LACTIC ACID 1.3 mmol/L (0.5-2.0)
[2019-01-15] MEDS ORDERED: ACETAMINOPHEN 325 MG TAB PO (23:30)
[2019-01-15] MEDS ORDERED: ONDANSETRON 4 MG INJ IV (23:30)
[2019-01-16 02:54] LABS: LACTIC ACID 1.4 mmol/L (0.5-2.0)
[2019-01-16] MEDS ORDERED: DOCUSATE SODIUM 100 MG CAP PO (03:00)
[2019-01-16] MEDS: CEFTRIAXONE 1 GM/50 ML (PMX) 50 ML IVPB (03:10)
[2019-01-16] MEDS: SOD CHLORIDE 0.9% 1,000 ML IV (03:10)
[2019-01-16] MEDS: ONDANSETRON 4 MG INJ IV ×2 (03:21→10:00)
[2019-01-16] MEDS ORDERED: CAPECITABINE 500 MG TAB PO ×2 (09:00)
[2019-01-16] MEDS: HYDROCODONE/APAP (5/325) TAB PO (09:58)
[2019-01-16] MEDS: MEMANTINE 5 MG TAB PO ×2 (10:00→20:42)
[2019-01-16] MEDS: PANTOPRAZOLE (EC) 40 MG TAB PO (10:03)
[2019-01-16] MEDS: XELODA 500 MG PO ×2 (13:00→20:32)
[2019-01-16] MEDS: TYKERB PO ×2 (14:00→20:32)
[2019-01-16] MEDS: METOPROLOL (XL) 25 MG TAB PO (20:42)
[2019-01-17] MEDS: CEFTRIAXONE 1 GM/50 ML (PMX) 50 ML IVPB (02:46)
[2019-01-17] MEDS: SOD CHLORIDE 0.9% 1,000 ML IV (05:51)
[2019-01-17] MEDS: PANTOPRAZOLE (EC) 40 MG TAB PO (05:52)
[2019-01-17 06:10] LABS: ADD MAN DIFF? NO
[2019-01-17 06:22] LABS: WHITE BLOOD COUNT 3.4 10^3/ul (4.8-10.8)
[2019-01-17 06:22] LABS: BASOPHILS % 0.3 % (0.0-2.0); EOSINOPHILS % 1.2 % (0.0-7.0); HEMATOCRIT 38.7 % (37.0-47.0); LYMPHOCYTES # 1.1 10^3/ul (0.8-2.9); LYMPHOCYTES % 31.7 % (15.0-51.0); MEAN CORPUSCULAR HEMOGLOBIN 33.4 pg (29.0-33.0); MEAN CORPUSCULAR HGB CONC 33.6 g/dl (32.0-37.0); MEAN CORPUSCULAR VOLUME 99.5 fl (82.0-101.0); MEAN PLATELET VOLUME 8.9 fl (7.4-10.4); MONOCYTE # 0.5 10^3/ul (0.3-0.9); MONOCYTES % 13.2 % (0.0-11.0); NEUTROPHIL # 1.8 10^3/ul (1.6-7.5); NEUTROPHILS % 53.3 % (39.0-77.0); PLATELET COUNT 253 10^3/UL (140-415); RED BLOOD COUNT 3.89 10^6/ul (4.20-5.40); RED CELL DISTRIBUTION WIDTH 17.5 % (11.5-14.5)
[2019-01-17 07:02] LABS: ANION GAP 7 (5-13); BLOOD UREA NITROGEN 2 mg/dl (7-20); CALCIUM 8.5 mg/dl (8.4-10.2); CARBON DIOXIDE 26 mmol/L (21-31); CHLORIDE 105 mmol/L (97-110); CREATININE 0.44 mg/dl (0.44-1.00); Estimated GFR > 60 mL/min (>60); GLUCOSE 88 mg/dl (70-220); SODIUM 138 mmol/L (135-144)
[2019-01-17 07:36] LABS: POTASSIUM 2.7 mmol/L (3.5-5.1)
[2019-01-17] MEDS: POTASSIUM CHLORIDE (SR) 20 MEQ TAB PO (08:57)
[2019-01-17] MEDS ORDERED: MULTIVITAMINS 30 ML CUP GTB (09:00)
[2019-01-17] MEDS: MEMANTINE 5 MG TAB PO ×2 (09:02→21:09)
[2019-01-17] MEDS: XELODA 500 MG PO ×2 (09:04→21:13)
[2019-01-17] MEDS: TYKERB PO ×3 (09:05→21:12)
[2019-01-17 15:40] LABS: POTASSIUM 3.8 mmol/L (3.5-5.1)
[2019-01-17] MEDS: METOPROLOL (XL) 25 MG TAB PO (21:14)
[2019-01-18] MEDS: SOD CHLORIDE 0.9% 1,000 ML IV (03:00)
[2019-01-18] MEDS: CEFTRIAXONE 1 GM/50 ML (PMX) 50 ML IVPB (03:08)
[2019-01-18] MEDS: ACETAMINOPHEN 325 MG TAB PO (04:41)
[2019-01-18 05:52] LABS: ADD MAN DIFF? NO
[2019-01-18 06:00] LABS: BASOPHILS % 0.3 % (0.0-2.0); EOSINOPHILS % 0.9 % (0.0-7.0); HEMATOCRIT 32.5 % (37.0-47.0); HEMOGLOBIN 10.9 g/dl (12.0-16.0); LYMPHOCYTES % 29.7 % (15.0-51.0); MEAN CORPUSCULAR HEMOGLOBIN 34.2 pg (29.0-33.0); MEAN CORPUSCULAR HGB CONC 33.5 g/dl (32.0-37.0); MEAN CORPUSCULAR VOLUME 101.9 fl (82.0-101.0); MEAN PLATELET VOLUME 8.5 fl (7.4-10.4); MONOCYTE # 0.4 10^3/ul (0.3-0.9); MONOCYTES % 10.9 % (0.0-11.0); NEUTROPHIL # 1.9 10^3/ul (1.6-7.5); NEUTROPHILS % 57.9 % (39.0-77.0); PLATELET COUNT 225 10^3/UL (140-415); RED BLOOD COUNT 3.19 10^6/ul (4.20-5.40); RED CELL DISTRIBUTION WIDTH 17.4 % (11.5-14.5)
[2019-01-18 06:00] LABS: WHITE BLOOD COUNT 3.2 10^3/ul (4.8-10.8)
[2019-01-18] MEDS: PANTOPRAZOLE (EC) 40 MG TAB PO (06:21)
[2019-01-18 06:45] LABS: ANION GAP 5 (5-13); BLOOD UREA NITROGEN 3 mg/dl (7-20); CALCIUM 7.4 mg/dl (8.4-10.2); CARBON DIOXIDE 22 mmol/L (21-31); CHLORIDE 111 mmol/L (97-110); CREATININE 0.43 mg/dl (0.44-1.00); Estimated GFR > 60 mL/min (>60); GLUCOSE 85 mg/dl (70-220); SODIUM 138 mmol/L (135-144)
[2019-01-18 06:56] LABS: POTASSIUM 2.7 mmol/L (3.5-5.1)
[2019-01-18] MEDS: MEMANTINE 5 MG TAB PO (08:26)
[2019-01-18] MEDS: TYKERB PO (08:26)
[2019-01-18] MEDS: XELODA 500 MG PO (08:26)
[2019-01-18] MEDS: POTASSIUM CHLORIDE 20 MEQ POWDER FOR ORAL SOLN PO (10:02)
== END 2019-01-18 11:20 | disposition home or self-care (01) | DRG 690 ==
LOC: MS1 23:16 → E/R 20:25 → PP2 01-16 02:25
DX: N39.0 Urinary tract infection, site not specified (principal); C79.31 Secondary malignant neoplasm of brain; E22.2 Syndrome of inappropriate secretion of antidiuretic hormone; I10 Essential (primary) hypertension; E87.6 Hypokalemia; Z91.81 History of falling; Z85.3 Personal history of malignant neoplasm of breast; Z90.11 Acquired absence of right breast and nipple
CPT/HCPCS: 36415; 70450; 71045; 72131; 74176; 80048; 80053; 81001; 83605; 84132; 84484; 85025; 85610; 85730; 87040-91; 87045; 87086; 93005; 96365; 96368; 96375; 97162; 99285-25

== ENCOUNTER 2019-02-09 20:07 | Inpatient (IN) | payer BC ==
[2019-02-09 21:29] LABS: ADD MAN DIFF? NO
[2019-02-09 21:30] LABS: WHITE BLOOD COUNT 3.7 10^3/ul (4.8-10.8)
[2019-02-09 21:30] LABS: BASOPHILS % 0.3 % (0.0-2.0); HEMOGLOBIN 12.6 g/dl (12.0-16.0); LYMPHOCYTES # 0.7 10^3/ul (0.8-2.9); LYMPHOCYTES % 18.6 % (15.0-51.0); MEAN CORPUSCULAR HEMOGLOBIN 34.4 pg (29.0-33.0); MEAN CORPUSCULAR VOLUME 98.4 fl (82.0-101.0); MEAN PLATELET VOLUME 8.4 fl (7.4-10.4); MONOCYTE # 0.4 10^3/ul (0.3-0.9); MONOCYTES % 11.9 % (0.0-11.0); NEUTROPHIL # 2.6 10^3/ul (1.6-7.5); NEUTROPHILS % 68.7 % (39.0-77.0); PLATELET COUNT 237 10^3/UL (140-415); RED BLOOD COUNT 3.66 10^6/ul (4.20-5.40); RED CELL DISTRIBUTION WIDTH 15.2 % (11.5-14.5)
[2019-02-09] MEDS: SOD CHLORIDE 0.9% 1,000 ML IV (21:31)
[2019-02-09] MEDS: HYDROmorphONE 0.5 MG/0.5 ML SYG IV (21:31)
[2019-02-09] MEDS: DIPHENHYDRAMINE 50 MG INJ IV (21:32)
[2019-02-09] MEDS: METOCLOPRAMIDE 10 MG INJ IV (21:32)
[2019-02-09 21:49] LABS: INR 1.27; PT RATIO 1.3
[2019-02-09 21:50] LABS: ANION GAP 11 (5-13); BLOOD UREA NITROGEN 8 mg/dl (7-20); CALCIUM 8.5 mg/dl (8.4-10.2); CARBON DIOXIDE 23 mmol/L (21-31); CHLORIDE 98 mmol/L (97-110); CREATININE 0.55 mg/dl (0.44-1.00); Estimated GFR > 60 mL/min (>60); GLUCOSE 122 mg/dl (70-220); SODIUM 132 mmol/L (135-144)
[2019-02-09 21:51] LABS: POTASSIUM 2.8 mmol/L (3.5-5.1)
[2019-02-09] MEDS: POTASSIUM CHLORIDE 100 ML IVPB (22:06)
[2019-02-09] MEDS: MAGNESIUM SULFATE 2 GM/50 ML 50 ML IVPB (22:06)
[2019-02-09] MEDS: POTASSIUM CHLORIDE 20 MEQ POWDER FOR ORAL SOLN PO (22:07)
[2019-02-09 22:23] LABS: PARTIAL THROMBOPLASTIN TIME > 180.0 Sec (23.0-35.0)
[2019-02-10] MEDS ORDERED: ACETAMINOPHEN 325 MG TAB PO ×2 (00:30→04:00)
[2019-02-10] MEDS ORDERED: ONDANSETRON 4 MG INJ IV ×2 (00:30→20:00)
[2019-02-10] MEDS: POTASSIUM CHLORIDE 100 ML IVPB (00:59)
[2019-02-10] MEDS ORDERED: DOCUSATE SODIUM 100 MG CAP PO (04:00)
[2019-02-10] MEDS ORDERED: MAGNESIUM HYDROXIDE 30ML CUP PO (04:00)
[2019-02-10 04:56] LABS: ADD MAN DIFF? NO
[2019-02-10 05:06] LABS: EOSINOPHILS % 0.5 % (0.0-7.0); HEMATOCRIT 34.9 % (37.0-47.0); LYMPHOCYTES % 26.1 % (15.0-51.0); MEAN CORPUSCULAR HEMOGLOBIN 34.3 pg (29.0-33.0); MEAN CORPUSCULAR HGB CONC 34.4 g/dl (32.0-37.0); MEAN CORPUSCULAR VOLUME 99.7 fl (82.0-101.0); MEAN PLATELET VOLUME 8.7 fl (7.4-10.4); MONOCYTE # 0.5 10^3/ul (0.3-0.9); MONOCYTES % 14.1 % (0.0-11.0); NEUTROPHIL # 2.2 10^3/ul (1.6-7.5); NEUTROPHILS % 58.8 % (39.0-77.0); PLATELET COUNT 222 10^3/UL (140-415); RED CELL DISTRIBUTION WIDTH 15.6 % (11.5-14.5)
[2019-02-10 05:06] LABS: WHITE BLOOD COUNT 3.8 10^3/ul (4.8-10.8)
[2019-02-10] MEDS: SOD CHLORIDE 0.9% 1,000 ML IV (05:16)
[2019-02-10 05:19] LABS: ALANINE AMINOTRANSFERASE 20 IU/L (13-69); ALBUMIN 2.7 g/dl (3.3-4.9); ALBUMIN/GLOBULIN RATIO 1.12; ALKALINE PHOSPHATASE 53 IU/L (42-121); ANION GAP 8 (5-13); ASPARTATE AMINO TRANSFERASE 22 IU/L (15-46); BILIRUBIN,INDIRECT 0.6 mg/dl (0-1.1); BILIRUBIN,TOTAL 0.6 mg/dl (0.2-1.3); BLOOD UREA NITROGEN 4 mg/dl (7-20); CALCIUM 7.7 mg/dl (8.4-10.2); CARBON DIOXIDE 20 mmol/L (21-31); CHLORIDE 113 mmol/L (97-110); CREATININE 0.44 mg/dl (0.44-1.00); Estimated GFR > 60 mL/min (>60); GLUCOSE 86 mg/dl (70-220); POTASSIUM 3.7 mmol/L (3.5-5.1); SODIUM 141 mmol/L (135-144); TOTAL PROTEIN 5.1 g/dl (6.1-8.1)
[2019-02-10] MEDS: LOSARTAN 25 MG TAB PO (08:33)
[2019-02-10] MEDS: FAMOTIDINE 20 MG TAB GTB ×2 (08:33→20:32)
[2019-02-10] MEDS: SPECIAL NON-STANDARD MEDICATION (CHEMO) PO ×4 (08:37→20:00)
[2019-02-10] MEDS: METOCLOPRAMIDE 10 MG TAB PO ×4 (08:41→20:32)
[2019-02-10] MEDS: OXYCODONE/ACETAMINOPHEN (5/325) TAB PO (14:02)
[2019-02-10] MEDS: HEPARIN (100 UNITS/ML) 5 ML SYG CATHETER (16:58)
[2019-02-10] MEDS: METOPROLOL (XL) 25 MG TAB PO (20:32)
[2019-02-10] MEDS: DEXTROSE 5%-0.45% NACL 1,000 ML IV (22:08)
[2019-02-11] MEDS: METOCLOPRAMIDE 10 MG TAB PO ×4 (07:42→20:46)
[2019-02-11] MEDS: KETOROLAC 15 MG INJ IV ×2 (07:43→19:59)
[2019-02-11] MEDS: FAMOTIDINE 20 MG TAB GTB ×2 (09:00→20:47)
[2019-02-11] MEDS: LOSARTAN 25 MG TAB PO (09:00)
[2019-02-11] MEDS: SPECIAL NON-STANDARD MEDICATION (CHEMO) PO ×4 (09:38→17:59)
[2019-02-11 11:28] LABS: ALANINE AMINOTRANSFERASE 28 IU/L (13-69); ALBUMIN 2.7 g/dl (3.3-4.9); ALBUMIN/GLOBULIN RATIO 1.03; ALKALINE PHOSPHATASE 52 IU/L (42-121); ANION GAP 6 (5-13); ASPARTATE AMINO TRANSFERASE 33 IU/L (15-46); BILIRUBIN,INDIRECT 0.7 mg/dl (0-1.1); BILIRUBIN,TOTAL 0.7 mg/dl (0.2-1.3); BLOOD UREA NITROGEN 2 mg/dl (7-20); CALCIUM 8.1 mg/dl (8.4-10.2); CARBON DIOXIDE 22 mmol/L (21-31); CHLORIDE 108 mmol/L (97-110); CREATININE 0.46 mg/dl (0.44-1.00); Estimated GFR > 60 mL/min (>60); GLUCOSE 99 mg/dl (70-220); LIPASE 31 U/L (23-300); POTASSIUM 3.1 mmol/L (3.5-5.1); SODIUM 136 mmol/L (135-144); TOTAL PROTEIN 5.3 g/dl (6.1-8.1)
[2019-02-11] MEDS ORDERED: LORAZEPAM 0.5 MG TAB PO (12:00)
[2019-02-11] MEDS: LORAZEPAM 1 MG TAB PO ×2 (12:00→23:05)
[2019-02-11] MEDS: DEXTROSE 5%-0.45% NACL 1,000 ML IV (16:46)
[2019-02-11] MEDS: METOPROLOL (XL) 25 MG TAB PO (20:47)
[2019-02-12] MEDS: SPECIAL NON-STANDARD MEDICATION (CHEMO) PO ×2 (07:50→08:54)
[2019-02-12] MEDS: FAMOTIDINE 20 MG TAB GTB (08:53)
[2019-02-12] MEDS: LOSARTAN 25 MG TAB PO (08:53)
[2019-02-12] MEDS: METOCLOPRAMIDE 10 MG TAB PO ×2 (08:53→12:20)
[2019-02-12] MEDS: KETOROLAC 15 MG INJ IV (12:20)
[2019-02-12] MEDS: DEXTROSE 5%-0.45% NACL 1,000 ML IV (12:25)
[2019-02-12] MEDS: HEPARIN (100 UNITS/ML) 5 ML SYG CATHETER (13:42)
== END 2019-02-12 13:49 | disposition home or self-care (01) | DRG 55 ==
LOC: E/R 20:07 → MS1 02-10 00:23
DX: C79.31 Secondary malignant neoplasm of brain (principal); R51 Headache; C50.911 Malignant neoplasm of unspecified site of right female breast; R11.2 Nausea with vomiting, unspecified; R73.03 Prediabetes; E87.6 Hypokalemia; I10 Essential (primary) hypertension; Z79.899 Other long term (current) drug therapy
CPT/HCPCS: 36415; 70450; 70553; 74018; 80048; 80053; 82962; 83690; 85025; 85610; 85730; 93005; 96374; 96375; 99285-25

== ENCOUNTER 2019-02-16 13:45 | Emergency (ER) | payer BC ==
[2019-02-16 15:15] LABS: URINE BLOOD (Dip) POC 2+ (NEGATIVE); URINE GLUCOSE (Dip) POC Negative (NEGATIVE); URINE KETONES (Dip) POC 3+ (NEGATIVE); URINE LEUKOCYTE EST (Dip) POC Negative (NEGATIVE); URINE NITRITE (Dip) POC Negative (NEGATIVE); URINE TOTAL PROTEIN POC Negative (NEGATIVE)
[2019-02-16 15:15] LABS: URINE PH (Dip) POC 5.5 (5.0-8.5)
[2019-02-16 15:20] LABS: ADD MAN DIFF? NO
[2019-02-16 15:32] LABS: BASOPHILS % 0.3 % (0.0-2.0); EOSINOPHILS % 0.3 % (0.0-7.0); HEMATOCRIT 37.9 % (37.0-47.0); HEMOGLOBIN 13.1 g/dl (12.0-16.0); LYMPHOCYTES # 0.7 10^3/ul (0.8-2.9); LYMPHOCYTES % 16.3 % (15.0-51.0); MEAN CORPUSCULAR HEMOGLOBIN 34.4 pg (29.0-33.0); MEAN CORPUSCULAR HGB CONC 34.6 g/dl (32.0-37.0); MEAN CORPUSCULAR VOLUME 99.5 fl (82.0-101.0); MEAN PLATELET VOLUME 8.6 fl (7.4-10.4); MONOCYTE # 0.3 10^3/ul (0.3-0.9); MONOCYTES % 7.5 % (0.0-11.0); NEUTROPHILS % 75.3 % (39.0-77.0); PLATELET COUNT 230 10^3/UL (140-415); RED BLOOD COUNT 3.81 10^6/ul (4.20-5.40); RED CELL DISTRIBUTION WIDTH 15.2 % (11.5-14.5)
[2019-02-16] MEDS: ONDANSETRON 4 MG INJ IV (15:37)
[2019-02-16] MEDS: METOCLOPRAMIDE 10 MG INJ IV (15:37)
[2019-02-16 15:38] LABS: ALANINE AMINOTRANSFERASE 34 IU/L (13-69); ALBUMIN/GLOBULIN RATIO 1.15; ALKALINE PHOSPHATASE 62 IU/L (42-121); ANION GAP 12 (5-13); ASPARTATE AMINO TRANSFERASE 31 IU/L (15-46); BILIRUBIN,INDIRECT 0.7 mg/dl (0-1.1); BILIRUBIN,TOTAL 0.7 mg/dl (0.2-1.3); BLOOD UREA NITROGEN 10 mg/dl (7-20); CALCIUM 8.7 mg/dl (8.4-10.2); CARBON DIOXIDE 20 mmol/L (21-31); CHLORIDE 102 mmol/L (97-110); CREATININE 0.47 mg/dl (0.44-1.00); Estimated GFR > 60 mL/min (>60); GLUCOSE 81 mg/dl (70-220); LIPASE 54 U/L (23-300); POTASSIUM 3.6 mmol/L (3.5-5.1); SODIUM 134 mmol/L (135-144); TOTAL PROTEIN 5.6 g/dl (6.1-8.1)
[2019-02-16] MEDS: SOD CHLORIDE 0.9% 1,000 ML IV (17:50)
== END 2019-02-16 18:45 | disposition home or self-care (01) ==
LOC: E/R 13:45
DX: D72.819 Decreased white blood cell count, unspecified (principal); C79.81 Secondary malignant neoplasm of breast; I10 Essential (primary) hypertension
CPT/HCPCS: 72128; 72131; 80053; 81003; 83690; 85025; 96374; 96375; 99285-25

== ENCOUNTER 2019-03-08 03:33 | Emergency (ER) | payer BC ==
[2019-03-08 04:03] LABS: ADD MAN DIFF? NO
[2019-03-08 04:08] LABS: WHITE BLOOD COUNT 6.6 10^3/ul (4.8-10.8)
[2019-03-08 04:08] LABS: BASOPHILS % 0.3 % (0.0-2.0); EOSINOPHILS % 0.2 % (0.0-7.0); HEMATOCRIT 43.3 % (37.0-47.0); LYMPHOCYTES # 2.2 10^3/ul (0.8-2.9); LYMPHOCYTES % 33.7 % (15.0-51.0); MEAN CORPUSCULAR HEMOGLOBIN 34.2 pg (29.0-33.0); MEAN CORPUSCULAR HGB CONC 34.6 g/dl (32.0-37.0); MEAN CORPUSCULAR VOLUME 98.9 fl (82.0-101.0); MEAN PLATELET VOLUME 8.5 fl (7.4-10.4); MONOCYTE # 0.5 10^3/ul (0.3-0.9); MONOCYTES % 7.6 % (0.0-11.0); NEUTROPHIL # 3.8 10^3/ul (1.6-7.5); NEUTROPHILS % 57.9 % (39.0-77.0); PLATELET COUNT 213 10^3/UL (140-415); RED BLOOD COUNT 4.38 10^6/ul (4.20-5.40)
[2019-03-08] MEDS: ONDANSETRON 4 MG INJ IV (04:08)
[2019-03-08] MEDS: SOD CHLORIDE 0.9% 1,000 ML IV (04:11)
[2019-03-08 04:25] LABS: ANION GAP 11 (5-13); BLOOD UREA NITROGEN 13 mg/dl (7-20); CALCIUM 9.7 mg/dl (8.4-10.2); CARBON DIOXIDE 24 mmol/L (21-31); CHLORIDE 100 mmol/L (97-110); CREATININE 0.54 mg/dl (0.44-1.00); Estimated GFR > 60 mL/min (>60); GLUCOSE 113 mg/dl (70-220); SODIUM 135 mmol/L (135-144)
[2019-03-08] MEDS: POTASSIUM CHLORIDE (SR) 20 MEQ TAB PO (04:50)
== END 2019-03-08 05:42 | disposition home or self-care (01) ==
LOC: E/R 03:33
DX: E87.6 Hypokalemia (principal); C79.31 Secondary malignant neoplasm of brain; C50.911 Malignant neoplasm of unspecified site of right female breast
CPT/HCPCS: 36415; 80048; 85025; 96374; 99284-25

== ENCOUNTER 2019-03-09 11:35 | Inpatient (IN) | payer BC ==
[2019-03-09 12:54] LABS: ADD MAN DIFF? NO
[2019-03-09 13:11] LABS: ABNORMAL IP MESSAGE 1; BASOPHILS % 0.1 % (0.0-2.0); HEMATOCRIT 39.4 % (37.0-47.0); HEMOGLOBIN 13.9 g/dl (12.0-16.0); LYMPHOCYTES # 0.5 10^3/ul (0.8-2.9); MEAN CORPUSCULAR HEMOGLOBIN 35.3 pg (29.0-33.0); MEAN CORPUSCULAR HGB CONC 35.3 g/dl (32.0-37.0); MEAN PLATELET VOLUME 8.6 fl (7.4-10.4); MONOCYTE # 0.3 10^3/ul (0.3-0.9); MONOCYTES % 4.3 % (0.0-11.0); NEUTROPHIL # 6.5 10^3/ul (1.6-7.5); NEUTROPHILS % 87.4 % (39.0-77.0); PLATELET COUNT 190 10^3/UL (140-415); RED BLOOD COUNT 3.94 10^6/ul (4.20-5.40); RED CELL DISTRIBUTION WIDTH 16.2 % (11.5-14.5)
[2019-03-09 13:11] LABS: WHITE BLOOD COUNT 7.4 10^3/ul (4.8-10.8)
[2019-03-09 13:12] LABS: POSITIVE DIFF @See below
[2019-03-09 13:15] LABS: ANION GAP 11 (5-13); BLOOD UREA NITROGEN 10 mg/dl (7-20); CARBON DIOXIDE 21 mmol/L (21-31); CHLORIDE 103 mmol/L (97-110); CREATININE 0.44 mg/dl (0.44-1.00); Estimated GFR > 60 mL/min (>60); GLUCOSE 111 mg/dl (70-220); SODIUM 135 mmol/L (135-144)
[2019-03-09 13:18] LABS: INR 0.92; PARTIAL THROMBOPLASTIN TIME 22.2 Sec (23.0-35.0); PROTIME 12.5 Sec (11.9-14.9)
[2019-03-09] MEDS: DIPHENHYDRAMINE 50 MG INJ IV (13:26)
[2019-03-09] MEDS: METOCLOPRAMIDE 10 MG INJ IV ×2 (13:26→18:19)
[2019-03-09] MEDS: SOD CHLORIDE 0.9% 1,000 ML IV (13:26)
[2019-03-09] MEDS: ACETAMINOPHEN 325 MG TAB PO (13:27)
[2019-03-09] MEDS: POTASSIUM CHLORIDE (SR) 20 MEQ TAB PO (13:32)
[2019-03-09] MEDS: DEXAMETHASONE 10 MG/ML 1 ML INJ IV (14:02)
[2019-03-09] MEDS ORDERED: ACETAMINOPHEN 325 MG TAB PO (15:00)
[2019-03-09] MEDS: ONDANSETRON 4 MG INJ IV (15:27)
[2019-03-09] MEDS ORDERED: MAGNESIUM HYDROXIDE 30ML CUP PO (16:00)
[2019-03-09] MEDS ORDERED: ONDANSETRON 4 MG INJ IV (16:00)
[2019-03-09] MEDS ORDERED: NACL 0.9% 3 ML SYG IV (16:00)
[2019-03-09 16:22] LABS: ALANINE AMINOTRANSFERASE 23 IU/L (13-69); ALBUMIN 3.3 g/dl (3.3-4.9); ALKALINE PHOSPHATASE 50 IU/L (42-121); ASPARTATE AMINO TRANSFERASE 27 IU/L (15-46); BILIRUBIN,INDIRECT 1.2 mg/dl (0-1.1); BILIRUBIN,TOTAL 1.2 mg/dl (0.2-1.3); TOTAL PROTEIN 5.9 g/dl (6.1-8.1)
[2019-03-09 17:11] LABS: AMMONIA < 9 umol/l (9-30)
[2019-03-09] MEDS: DEXTROSE 5%-0.45% NACL 1,000 ML IV (17:55)
[2019-03-09] MEDS: KETOROLAC 30 MG INJ IV (18:19)
[2019-03-09 19:14] LABS: FOLATE 9.5 ng/ml (2.8-20.0)
[2019-03-09 21:01] LABS: ADD UMIC YES; UR ASCORBIC ACID NEGATIVE (NEGATIVE); UR BILIRUBIN (Dip) NEGATIVE (NEGATIVE); UR BLOOD (Dip) 1+ mg/dL (NEGATIVE); UR CLARITY CLEAR (CLEAR); UR COLOR STRAW (YELLOW); UR GLUCOSE (Dip) 1+ mg/dL (NEGATIVE); UR KETONES (Dip) 1+ mg/dL (NEGATIVE); UR LEUKOCYTE ESTERASE (Dip) 1+ Leu/ul (NEGATIVE); UR NITRITE (Dip) NEGATIVE (NEGATIVE); UR RBC 3 /HPF (0-5); UR TOTAL PROTEIN (Dip) NEGATIVE (NEGATIVE); UR UROBILINOGEN (Dip) NEGATIVE (NEGATIVE); UR WBC 12 /HPF (0-5)
[2019-03-09] MEDS: LORAZEPAM 2 MG INJ IV (21:56)
[2019-03-10] MEDS: PANTOPRAZOLE 40 MG INJ IV (06:11)
[2019-03-10 10:13] LABS: ANION GAP 7 (5-13); BLOOD UREA NITROGEN 5 mg/dl (7-20); CALCIUM 9.1 mg/dl (8.4-10.2); CARBON DIOXIDE 24 mmol/L (21-31); CHLORIDE 107 mmol/L (97-110); CREATININE 0.46 mg/dl (0.44-1.00); Estimated GFR > 60 mL/min (>60); GLUCOSE 95 mg/dl (70-220); MAGNESIUM 1.8 mg/dl (1.7-2.5); PHOSPHORUS 2.5 mg/dl (2.5-4.9); POTASSIUM 3.6 mmol/L (3.5-5.1); SODIUM 138 mmol/L (135-144)
[2019-03-10 10:43] LABS: THYROID STIMULATING HORMONE 0.553 MIU/L (0.465-4.680)
[2019-03-10] MEDS: KETOROLAC 30 MG INJ IV ×2 (10:51→21:34)
[2019-03-10] MEDS: CEFTRIAXONE 1 GM/50 ML (PMX) 50 ML IVPB (10:55)
[2019-03-10] MEDS: ACETAMINOPHEN 325 MG TAB PO ×2 (13:20→19:31)
[2019-03-10] MEDS: DEXTROSE 5%-0.45% NACL 1,000 ML IV (13:39)
[2019-03-10] MEDS: IBUPROFEN 600 MG TAB PO (14:37)
[2019-03-10] MEDS: QUETIAPINE 25 MG TAB PO (15:21)
[2019-03-10] MEDS ORDERED: QUETIAPINE 100 MG TAB PO (17:13)
[2019-03-10] MEDS: HALOPERIDOL 5 MG INJ IM (17:22)
[2019-03-10] MEDS: OLANZAPINE (ODT) 5 MG TAB ODT (20:31)
[2019-03-11] MEDS: LORAZEPAM 2 MG INJ IV ×4 (01:22→23:00)
[2019-03-11 06:05] LABS: ADD MAN DIFF? NO
[2019-03-11 06:07] LABS: WHITE BLOOD COUNT 8.5 10^3/ul (4.8-10.8)
[2019-03-11 06:07] LABS: ABNORMAL IP MESSAGE 1; BASOPHILS % 0.1 % (0.0-2.0); HEMATOCRIT 38.6 % (37.0-47.0); HEMOGLOBIN 13.5 g/dl (12.0-16.0); LYMPHOCYTES # 0.3 10^3/ul (0.8-2.9); LYMPHOCYTES % 3.9 % (15.0-51.0); MEAN CORPUSCULAR HEMOGLOBIN 34.1 pg (29.0-33.0); MEAN CORPUSCULAR VOLUME 97.5 fl (82.0-101.0); MEAN PLATELET VOLUME 8.8 fl (7.4-10.4); MONOCYTE # 0.4 10^3/ul (0.3-0.9); MONOCYTES % 4.9 % (0.0-11.0); NEUTROPHIL # 7.7 10^3/ul (1.6-7.5); NEUTROPHILS % 90.4 % (39.0-77.0); PLATELET COUNT 192 10^3/UL (140-415); RED BLOOD COUNT 3.96 10^6/ul (4.20-5.40); RED CELL DISTRIBUTION WIDTH 15.7 % (11.5-14.5)
[2019-03-11] MEDS: HALOPERIDOL 5 MG INJ IM (06:07)
[2019-03-11] MEDS: PANTOPRAZOLE 40 MG INJ IV (06:07)
[2019-03-11 06:12] LABS: ANION GAP 14 (5-13); BLOOD UREA NITROGEN 5 mg/dl (7-20); CALCIUM 8.7 mg/dl (8.4-10.2); CARBON DIOXIDE 20 mmol/L (21-31); CHLORIDE 95 mmol/L (97-110); CREATININE 0.37 mg/dl (0.44-1.00); Estimated GFR > 60 mL/min (>60); GLUCOSE 112 mg/dl (70-220); SODIUM 129 mmol/L (135-144)
[2019-03-11 06:21] LABS: POTASSIUM 2.9 mmol/L (3.5-5.1)
[2019-03-11 06:41] LABS: POSITIVE DIFF @See below
[2019-03-11] MEDS: DEXTROSE 5%-0.45% NACL 1,000 ML IV (07:59)
[2019-03-11] MEDS: OLANZAPINE (ODT) 5 MG TAB ODT ×2 (09:00→20:38)
[2019-03-11] MEDS: LEVETIRACETAM 500 MG (PMX) 100 ML IVPB (09:21)
[2019-03-11] MEDS: LORAZEPAM 2 MG INJ IM (09:21)
[2019-03-11] MEDS: ENOXAPARIN 40 MG/0.4 ML SYG SC (09:52)
[2019-03-11] MEDS: CEFTRIAXONE 1 GM/50 ML (PMX) 50 ML IVPB (10:39)
[2019-03-11 13:17] LABS: SODIUM 128 mmol/L (135-144)
[2019-03-11 13:17] LABS: ALANINE AMINOTRANSFERASE 35 IU/L (13-69); ASPARTATE AMINO TRANSFERASE 43 IU/L (15-46)
[2019-03-11] MEDS: DEXTROSE 5%-0.9% NACL 1,000 ML IV ×2 (15:30→20:52)
[2019-03-11] MEDS: DEXAMETHASONE 4 MG/ML 1 ML INJ IV ×2 (15:40→22:29)
[2019-03-11] MEDS: TOLVAPTAN 15 MG TABLET PO (18:19)
[2019-03-11] MEDS: SOD CHLORIDE 0.9% IVPB (18:43)
[2019-03-11] MEDS: VALPROATE IVPB (18:43)
[2019-03-11] MEDS: POTASSIUM CHLORIDE 100 ML IVPB ×4 (20:31→23:13)
[2019-03-11] MEDS: hydrALAzine 20 MG INJ IV (20:47)
[2019-03-11 20:54] LABS: SODIUM 126 mmol/L (135-144)
[2019-03-11 20:56] LABS: LACTIC ACID 1.3 mmol/L (0.5-2.0)
[2019-03-11 21:00] LABS: POTASSIUM 2.3 mmol/L (3.5-5.1)
[2019-03-11 21:02] LABS: VALPROATE 98 ug/ml (50-100)
[2019-03-11 21:26] LABS: Allen Test ACCEPTAB; Arterial Base Excess 1.5 mmol/L (-3.0-3); Arterial Blood Gas Oxygen Sat 99.3 mmHG (95.0-98.0); Arterial COHb 0.2 % (0.0-3.0); Arterial Fraction of Oxyhgb 98.9 % (93.0-99.0); Arterial MetHb 0.2 % (0.0-1.5); Arterial pCO2 21.9 mmhg (35-45); MODE NASAL CANNULA; Site Left Radial
[2019-03-12] MEDS: KETOROLAC 30 MG INJ IV (00:35)
[2019-03-12] MEDS: VALPROATE INJ 250 MG in SOD CHLORIDE 0.9% 50 ML IVPB (00:40)
[2019-03-12] MEDS: LORAZEPAM 2 MG INJ IV (02:33)
[2019-03-12] MEDS: PANTOPRAZOLE 40 MG INJ IV (05:09)
[2019-03-12] MEDS: DEXAMETHASONE 4 MG/ML 1 ML INJ IV ×3 (05:09→21:45)
[2019-03-12 06:09] LABS: ADD MAN DIFF? NO
[2019-03-12 06:19] LABS: WHITE BLOOD COUNT 6.1 10^3/ul (4.8-10.8)
[2019-03-12 06:19] LABS: ABNORMAL IP MESSAGE 1; HEMATOCRIT 35.5 % (37.0-47.0); LYMPHOCYTES # 0.3 10^3/ul (0.8-2.9); LYMPHOCYTES % 4.5 % (15.0-51.0); MEAN CORPUSCULAR HEMOGLOBIN 34.7 pg (29.0-33.0); MEAN CORPUSCULAR HGB CONC 36.6 g/dl (32.0-37.0); MEAN CORPUSCULAR VOLUME 94.7 fl (82.0-101.0); MEAN PLATELET VOLUME 9.9 fl (7.4-10.4); MONOCYTE # 0.3 10^3/ul (0.3-0.9); NEUTROPHIL # 5.4 10^3/ul (1.6-7.5); NEUTROPHILS % 89.7 % (39.0-77.0); PLATELET COUNT 161 10^3/UL (140-415); RED BLOOD COUNT 3.75 10^6/ul (4.20-5.40); RED CELL DISTRIBUTION WIDTH 15.3 % (11.5-14.5)
[2019-03-12 06:37] LABS: POSITIVE DIFF @See below
[2019-03-12 06:39] LABS: ANION GAP 10 (5-13); BLOOD UREA NITROGEN 6 mg/dl (7-20); CALCIUM 8.8 mg/dl (8.4-10.2); CARBON DIOXIDE 21 mmol/L (21-31); CHLORIDE 97 mmol/L (97-110); Estimated GFR > 60 mL/min (>60); GLUCOSE 180 mg/dl (70-220); SODIUM 128 mmol/L (135-144)
[2019-03-12 06:39] LABS: VALPROATE 50 ug/ml (50-100)
[2019-03-12 06:41] LABS: MAGNESIUM 1.5 mg/dl (1.7-2.5)
[2019-03-12 06:51] LABS: POTASSIUM 2.4 mmol/L (3.5-5.1)
[2019-03-12] MEDS: POTASSIUM CHLORIDE 100 ML IVPB ×4 (08:12→16:06)
[2019-03-12] MEDS: OLANZAPINE (ODT) 5 MG TAB ODT ×2 (08:13→21:00)
[2019-03-12] MEDS: ENOXAPARIN 40 MG/0.4 ML SYG SC (09:00)
[2019-03-12] MEDS: CEFTRIAXONE 1 GM/50 ML (PMX) 50 ML IVPB (09:52)
[2019-03-12] MEDS: MAGNESIUM SULFATE 2 GM/50 ML 50 ML IVPB (09:52)
[2019-03-12] MEDS ORDERED: TPN 1,000 ML IV (10:15)
[2019-03-12 12:19] LABS: ALANINE AMINOTRANSFERASE 34 IU/L (13-69); ALBUMIN 2.9 g/dl (3.3-4.9); ALBUMIN/GLOBULIN RATIO 1.45; ALKALINE PHOSPHATASE 44 IU/L (42-121); ANION GAP 6 (5-13); ASPARTATE AMINO TRANSFERASE 29 IU/L (15-46); BILIRUBIN,INDIRECT 0.8 mg/dl (0-1.1); BILIRUBIN,TOTAL 0.8 mg/dl (0.2-1.3); BLOOD UREA NITROGEN 4 mg/dl (7-20); CALCIUM 9.2 mg/dl (8.4-10.2); CARBON DIOXIDE 22 mmol/L (21-31); CHLORIDE 104 mmol/L (97-110); CREATININE 0.35 mg/dl (0.44-1.00); Estimated GFR > 60 mL/min (>60); GLUCOSE 113 mg/dl (70-220); MAGNESIUM 1.7 mg/dl (1.7-2.5); PHOSPHORUS 2.2 mg/dl (2.5-4.9); POTASSIUM 4.3 mmol/L (3.5-5.1); SODIUM 132 mmol/L (135-144); TOTAL PROTEIN 4.9 g/dl (6.1-8.1); TRIGLYCERIDES 67 mg/dl (0-149)
[2019-03-12 12:27] LABS: PREALBUMIN 21.5 mg/dl (17.6-36.0)
[2019-03-12] MEDS: LIDOCAINE 1% (MPF) 5 ML VIAL SC (14:30)
[2019-03-12] MEDS: VALPROATE INJ 500 MG in SOD CHLORIDE 0.9% 50 ML IVPB (16:06)
[2019-03-12] MEDS: ACCU-CHEK XX (21:00)
[2019-03-12] MEDS: TPN 1,000 ML IV (21:45)
[2019-03-13] MEDS: ACCU-CHEK XX ×6 (01:00→21:00)
[2019-03-13] MEDS: VALPROATE INJ 500 MG in SOD CHLORIDE 0.9% 50 ML IVPB ×2 (01:34→12:10)
[2019-03-13] MEDS: PANTOPRAZOLE 40 MG INJ IV (05:41)
[2019-03-13] MEDS: DEXAMETHASONE 4 MG/ML 1 ML INJ IV ×3 (05:41→21:08)
[2019-03-13 06:26] LABS: ADD MAN DIFF? NO
[2019-03-13 06:31] LABS: ABNORMAL IP MESSAGE 1; HEMATOCRIT 38.9 % (37.0-47.0); HEMOGLOBIN 13.4 g/dl (12.0-16.0); LYMPHOCYTES # 0.3 10^3/ul (0.8-2.9); LYMPHOCYTES % 2.9 % (15.0-51.0); MEAN CORPUSCULAR HEMOGLOBIN 34.1 pg (29.0-33.0); MEAN CORPUSCULAR HGB CONC 34.4 g/dl (32.0-37.0); MONOCYTE # 0.7 10^3/ul (0.3-0.9); MONOCYTES % 8.2 % (0.0-11.0); NEUTROPHIL # 7.9 10^3/ul (1.6-7.5); NEUTROPHILS % 88.1 % (39.0-77.0); PLATELET COUNT 200 10^3/UL (140-415); RED BLOOD COUNT 3.93 10^6/ul (4.20-5.40); RED CELL DISTRIBUTION WIDTH 16.8 % (11.5-14.5)
[2019-03-13 06:53] LABS: POSITIVE DIFF @See below
[2019-03-13 06:59] LABS: ANION GAP 6 (5-13); BLOOD UREA NITROGEN 13 mg/dl (7-20); CALCIUM 10.3 mg/dl (8.4-10.2); CARBON DIOXIDE 21 mmol/L (21-31); CHLORIDE 109 mmol/L (97-110); CREATININE 0.47 mg/dl (0.44-1.00); Estimated GFR > 60 mL/min (>60); GLUCOSE 127 mg/dl (70-220); POTASSIUM 3.4 mmol/L (3.5-5.1); SODIUM 136 mmol/L (135-144)
[2019-03-13 07:00] LABS: MAGNESIUM 2.1 mg/dl (1.7-2.5)
[2019-03-13 07:00] LABS: PHOSPHORUS 2.2 mg/dl (2.5-4.9)
[2019-03-13 07:03] LABS: VALPROATE 73 ug/ml (50-100)
[2019-03-13] MEDS: OLANZAPINE (ODT) 5 MG TAB ODT ×2 (08:59→21:00)
[2019-03-13] MEDS: CEFTRIAXONE 1 GM/50 ML (PMX) 50 ML IVPB (09:01)
[2019-03-13] MEDS: ENOXAPARIN 40 MG/0.4 ML SYG SC (09:07)
[2019-03-13] MEDS: POTASSIUM PHOSPHATE 20 MEQ in SOD CHLORIDE 0.9% 250 ML IVPB (12:09)
[2019-03-13] MEDS: FAT EMULSION 20% 250 ML IV (17:02)
[2019-03-13] MEDS: KETOROLAC 30 MG INJ IV (22:48)
[2019-03-13] MEDS: TPN 1,000 ML IV (23:02)
[2019-03-14] MEDS: VALPROATE INJ 500 MG in SOD CHLORIDE 0.9% 50 ML IVPB ×2 (00:51→12:22)
[2019-03-14] MEDS: ACCU-CHEK XX ×6 (01:00→21:50)
[2019-03-14] MEDS: PANTOPRAZOLE 40 MG INJ IV (05:40)
[2019-03-14] MEDS: DEXAMETHASONE 4 MG/ML 1 ML INJ IV ×3 (05:40→21:58)
[2019-03-14 07:33] LABS: ANION GAP 4 (5-13); BLOOD UREA NITROGEN 21 mg/dl (7-20); CALCIUM 9.2 mg/dl (8.4-10.2); CARBON DIOXIDE 22 mmol/L (21-31); CHLORIDE 109 mmol/L (97-110); CREATININE 0.38 mg/dl (0.44-1.00); Estimated GFR > 60 mL/min (>60); GLUCOSE 128 mg/dl (70-220); PHOSPHORUS 2.4 mg/dl (2.5-4.9); POTASSIUM 3.3 mmol/L (3.5-5.1); SODIUM 135 mmol/L (135-144)
[2019-03-14] MEDS: OLANZAPINE (ODT) 5 MG TAB ODT ×2 (09:00→20:31)
[2019-03-14] MEDS: CEFTRIAXONE 1 GM/50 ML (PMX) 50 ML IVPB (09:09)
[2019-03-14] MEDS: ENOXAPARIN 40 MG/0.4 ML SYG SC (09:32)
[2019-03-14] MEDS: hydrALAzine 20 MG INJ IV (11:43)
[2019-03-14] MEDS: KETOROLAC 30 MG INJ IV ×2 (12:21→23:09)
[2019-03-14] MEDS: POTASSIUM PHOSPHATE 15 MM in SOD CHLORIDE 0.9% 250 ML IV (13:52)
[2019-03-14] MEDS: FAT EMULSION 20% 250 ML IV (16:27)
[2019-03-14] MEDS: TPN 1,000 ML IV (17:45)
[2019-03-14] MEDS ORDERED: METOCLOPRAMIDE 10 MG INJ IV ×2 (18:00)
[2019-03-14] MEDS: ACETAMINOPHEN 325 MG TAB PO (20:38)
[2019-03-15] MEDS: VALPROATE INJ 500 MG in SOD CHLORIDE 0.9% 50 ML IVPB ×2 (00:23→13:57)
[2019-03-15] MEDS: ACCU-CHEK XX ×6 (01:25→20:52)
[2019-03-15] MEDS: KETOROLAC 30 MG INJ IV ×2 (04:30→15:08)
[2019-03-15] MEDS: DEXAMETHASONE 4 MG/ML 1 ML INJ IV ×3 (05:37→21:16)
[2019-03-15] MEDS: PANTOPRAZOLE 40 MG INJ IV (05:37)
[2019-03-15] MEDS: LORAZEPAM 2 MG INJ IV ×2 (06:10→19:11)
[2019-03-15 07:29] LABS: ANION GAP 7 (5-13); BLOOD UREA NITROGEN 19 mg/dl (7-20); CALCIUM 8.8 mg/dl (8.4-10.2); CARBON DIOXIDE 24 mmol/L (21-31); CHLORIDE 104 mmol/L (97-110); CREATININE 0.35 mg/dl (0.44-1.00); Estimated GFR > 60 mL/min (>60); GLUCOSE 140 mg/dl (70-220); MAGNESIUM 1.9 mg/dl (1.7-2.5); PHOSPHORUS 2.5 mg/dl (2.5-4.9); POTASSIUM 3.1 mmol/L (3.5-5.1); SODIUM 135 mmol/L (135-144)
[2019-03-15] MEDS ORDERED: MEGESTROL (40 MG/ML) 10ML CUP PO (09:00)
[2019-03-15] MEDS: OLANZAPINE (ODT) 5 MG TAB ODT ×2 (09:00→20:52)
[2019-03-15] MEDS: CEFTRIAXONE 1 GM/50 ML (PMX) 50 ML IVPB (09:27)
[2019-03-15] MEDS: TPN 1,000 ML IV (10:38)
[2019-03-15] MEDS: ENOXAPARIN 40 MG/0.4 ML SYG SC (11:38)
[2019-03-15] MEDS: POTASSIUM CHLORIDE 50 ML IVPB ×3 (12:42→16:26)
[2019-03-15] MEDS ORDERED: POTASSIUM CHLORIDE 50 ML IVPB (13:30)
[2019-03-15] MEDS ORDERED: morphine SULFATE/PF (2 MG/2 ML) SYG IV (16:00)
[2019-03-15] MEDS: SCOPOLAMINE 1.5 MG PATCH TRANSDERM (16:25)
[2019-03-15] MEDS: FAT EMULSION 20% 250 ML IV (16:26)
[2019-03-15] MEDS: IBUPROFEN 600 MG TAB PO (18:25)
[2019-03-15] MEDS: hydrALAzine 20 MG INJ IV (23:51)
[2019-03-16] MEDS: IBUPROFEN 600 MG TAB PO ×2 (00:20→15:59)
[2019-03-16] MEDS: ACCU-CHEK XX ×6 (01:00→21:23)
[2019-03-16] MEDS: VALPROATE INJ 500 MG in SOD CHLORIDE 0.9% 50 ML IVPB ×2 (01:08→13:19)
[2019-03-16] MEDS: LORAZEPAM 2 MG INJ IV ×2 (02:53→19:49)
[2019-03-16] MEDS: DEXAMETHASONE 4 MG/ML 1 ML INJ IV ×3 (05:07→21:21)
[2019-03-16] MEDS: TPN 1,000 ML IV ×3 (05:07→22:42)
[2019-03-16] MEDS: PANTOPRAZOLE 40 MG INJ IV (05:07)
[2019-03-16 06:24] LABS: ANION GAP 12 (5-13); BLOOD UREA NITROGEN 18 mg/dl (7-20); CALCIUM 8.7 mg/dl (8.4-10.2); CARBON DIOXIDE 20 mmol/L (21-31); CHLORIDE 99 mmol/L (97-110); CREATININE 0.25 mg/dl (0.44-1.00); Estimated GFR > 60 mL/min (>60); GLUCOSE 217 mg/dl (70-220); MAGNESIUM 1.6 mg/dl (1.7-2.5); PHOSPHORUS 2.3 mg/dl (2.5-4.9); SODIUM 131 mmol/L (135-144)
[2019-03-16] MEDS: CEFTRIAXONE 1 GM/50 ML (PMX) 50 ML IVPB (09:56)
[2019-03-16] MEDS: OLANZAPINE (ODT) 5 MG TAB ODT ×2 (09:57→21:00)
[2019-03-16] MEDS: MAGNESIUM SULFATE 2 GM/50 ML 50 ML IVPB (10:44)
[2019-03-16] MEDS: KETOROLAC 30 MG INJ IV (11:22)
[2019-03-16] MEDS ORDERED: GLUCAGON 1 MG INJ IM (12:00)
[2019-03-16] MEDS ORDERED: DEXTROSE 50% 50 ML SYRINGE IV ×2 (12:00)
[2019-03-16] MEDS ORDERED: GLUCOSE GEL 15 GRAM TUBE BUCCAL (12:00)
[2019-03-16] MEDS ORDERED: GLUCOSE GEL 15 GRAM TUBE PO ×2 (12:00)
[2019-03-16] MEDS: POTASSIUM PHOSPHATE 20 MEQ in SOD CHLORIDE 0.9% 250 ML IVPB (15:59)
[2019-03-16] MEDS: FAT EMULSION 20% 250 ML IV (16:54)
[2019-03-16] MEDS: INSULIN ASPART [NOVOLOG] 3 ML PEN SC ×2 (17:30→21:22)
[2019-03-16] MEDS: hydrALAzine 20 MG INJ IV (20:38)
[2019-03-17] MEDS: ACCU-CHEK XX ×2 (01:00→02:32)
[2019-03-17] MEDS: VALPROATE INJ 500 MG in SOD CHLORIDE 0.9% 50 ML IVPB ×2 (01:27→13:14)
[2019-03-17] MEDS: morphine 2 MG INJ IV ×3 (02:31→22:11)
[2019-03-17] MEDS: DEXAMETHASONE 4 MG/ML 1 ML INJ IV ×3 (05:29→22:03)
[2019-03-17] MEDS: PANTOPRAZOLE 40 MG INJ IV (05:29)
[2019-03-17 05:54] LABS: ANION GAP 9 (5-13); BLOOD UREA NITROGEN 17 mg/dl (7-20); CALCIUM 8.2 mg/dl (8.4-10.2); CARBON DIOXIDE 24 mmol/L (21-31); CHLORIDE 93 mmol/L (97-110); CREATININE 0.28 mg/dl (0.44-1.00); Estimated GFR > 60 mL/min (>60); GLUCOSE 196 mg/dl (70-220); MAGNESIUM 1.9 mg/dl (1.7-2.5); PHOSPHORUS 3.1 mg/dl (2.5-4.9); POTASSIUM 3.2 mmol/L (3.5-5.1); SODIUM 126 mmol/L (135-144)
[2019-03-17] MEDS: INSULIN ASPART [NOVOLOG] 3 ML PEN SC ×4 (08:46→20:36)
[2019-03-17] MEDS: OLANZAPINE (ODT) 5 MG TAB ODT ×2 (09:00→20:40)
[2019-03-17] MEDS ORDERED: TOLVAPTAN 15 MG TABLET PO (09:30)
[2019-03-17] MEDS: CEFTRIAXONE 1 GM/50 ML (PMX) 50 ML IVPB (10:11)
[2019-03-17 10:46] LABS: SODIUM 125 mmol/L (135-144)
[2019-03-17 10:46] LABS: ALANINE AMINOTRANSFERASE 39 IU/L (13-69); ASPARTATE AMINO TRANSFERASE 21 IU/L (15-46)
[2019-03-17] MEDS: TPN 1,000 ML IV (14:56)
[2019-03-17] MEDS: FAT EMULSION 20% 250 ML IV (15:50)
[2019-03-18] MEDS: VALPROATE INJ 500 MG in SOD CHLORIDE 0.9% 50 ML IVPB (00:31)
[2019-03-18] MEDS: ACCU-CHEK XX (01:23)
[2019-03-18] MEDS: PANTOPRAZOLE 40 MG INJ IV (05:34)
[2019-03-18] MEDS: DEXAMETHASONE 4 MG/ML 1 ML INJ IV (05:34)
[2019-03-18] MEDS: INSULIN ASPART [NOVOLOG] 3 ML PEN SC ×4 (08:39→21:00)
[2019-03-18] MEDS: OLANZAPINE (ODT) 5 MG TAB ODT ×2 (08:40→21:02)
[2019-03-18] MEDS: TPN 1,000 ML IV ×2 (08:43→22:20)
[2019-03-18] MEDS: CEFTRIAXONE 1 GM/50 ML (PMX) 50 ML IVPB (09:51)
[2019-03-18] MEDS: NYSTATIN SUSP 5 ML CUP PO ×4 (10:30→21:02)
[2019-03-18] MEDS: morphine 2 MG INJ IV ×2 (12:35→21:43)
[2019-03-18] MEDS: DIVALPROEX (EC) 500 MG TAB PO ×2 (13:00→21:02)
[2019-03-18] MEDS: DEXAMETHASONE (1 MG/ML PO SYG) PO ×2 (14:00→21:41)
[2019-03-18] MEDS: FAT EMULSION 20% 250 ML IV (17:32)
[2019-03-18] MEDS: SCOPOLAMINE 1.5 MG PATCH TRANSDERM (17:32)
[2019-03-19] MEDS: TPN 1,000 ML IV ×2 (00:23→17:31)
[2019-03-19] MEDS: ACCU-CHEK XX (01:26)
[2019-03-19] MEDS: DEXAMETHASONE (1 MG/ML PO SYG) PO ×3 (05:11→21:34)
[2019-03-19] MEDS: PANTOPRAZOLE 40 MG INJ IV (05:11)
[2019-03-19 05:36] LABS: PREALBUMIN 30.6 mg/dl (17.6-36.0)
[2019-03-19 05:43] LABS: ANION GAP -1 (5-13); BLOOD UREA NITROGEN 25 mg/dl (7-20); CALCIUM 8.3 mg/dl (8.4-10.2); CARBON DIOXIDE 30 mmol/L (21-31); CHLORIDE 104 mmol/L (97-110); CREATININE 0.24 mg/dl (0.44-1.00); Estimated GFR > 60 mL/min (>60); GLUCOSE 150 mg/dl (70-220); PHOSPHORUS 2.9 mg/dl (2.5-4.9); SODIUM 133 mmol/L (135-144)
[2019-03-19] MEDS: INSULIN ASPART [NOVOLOG] 3 ML PEN SC ×4 (07:50→21:00)
[2019-03-19] MEDS: DIVALPROEX (EC) 500 MG TAB PO ×2 (08:34→21:00)
[2019-03-19] MEDS: OLANZAPINE (ODT) 5 MG TAB ODT ×2 (08:35→21:00)
[2019-03-19] MEDS: NYSTATIN SUSP 5 ML CUP PO ×4 (08:35→21:00)
[2019-03-19] MEDS: IBUPROFEN 600 MG TAB PO (08:41)
[2019-03-19] MEDS: morphine 2 MG INJ IV ×2 (09:19→18:19)
[2019-03-19] MEDS ORDERED: HYDROCODONE/APAP (5/325) TAB PO (10:00)
[2019-03-19] MEDS: FAT EMULSION 20% 250 ML IV (17:36)
[2019-03-20] MEDS: morphine 2 MG INJ IV ×2 (01:25→11:15)
[2019-03-20] MEDS: ACCU-CHEK XX (01:35)
[2019-03-20 05:30] LABS: ANION GAP -1 (5-13); BLOOD UREA NITROGEN 26 mg/dl (7-20); CARBON DIOXIDE 31 mmol/L (21-31); CHLORIDE 104 mmol/L (97-110); CREATININE 0.26 mg/dl (0.44-1.00); Estimated GFR > 60 mL/min (>60); GLUCOSE 119 mg/dl (70-220); MAGNESIUM 1.9 mg/dl (1.7-2.5); PHOSPHORUS 3.4 mg/dl (2.5-4.9); POTASSIUM 4.4 mmol/L (3.5-5.1); SODIUM 134 mmol/L (135-144)
[2019-03-20] MEDS: PANTOPRAZOLE 40 MG INJ IV (06:24)
[2019-03-20] MEDS: DEXAMETHASONE (1 MG/ML PO SYG) PO ×2 (06:25→14:00)
[2019-03-20] MEDS: OLANZAPINE (ODT) 5 MG TAB ODT (08:52)
[2019-03-20] MEDS: DIVALPROEX (EC) 500 MG TAB PO (08:52)
[2019-03-20] MEDS: NYSTATIN SUSP 5 ML CUP PO ×2 (08:52→14:31)
[2019-03-20] MEDS: INSULIN ASPART [NOVOLOG] 3 ML PEN SC ×2 (08:54→11:40)
[2019-03-20] MEDS: HEPARIN (100 UNITS/ML) 5 ML SYG CATHETER (14:15)
== END 2019-03-20 16:20 | disposition hospice, home (50) | DRG 92 ==
LOC: MS1 03-15 21:51 → MS3 03-10 21:13 → E/R 11:35 → 6WM 03-11 01:45 → MS1 03-15 22:16
PROC: 02HV33Z Insertion of Infusion Device into Superior Vena Cava, Percutaneous Approach (ICD-10-PCS; principal; 2019-03-12)
PROC: 3E0436Z Introduction of Nutritional Substance into Central Vein, Percutaneous Approach (ICD-10-PCS; 2019-03-12)
DX: G92 Toxic encephalopathy (principal); C79.31 Secondary malignant neoplasm of brain; E87.1 Hypo-osmolality and hyponatremia; C79.49 Secondary malignant neoplasm of other parts of nervous system; E87.6 Hypokalemia; R62.7 Adult failure to thrive; R56.9 Unspecified convulsions; R53.1 Weakness; R11.2 Nausea with vomiting, unspecified; R63.0 Anorexia; I10 Essential (primary) hypertension; T43.505A Adverse effect of unspecified antipsychotics and neuroleptics, initial encounter; Z66 Do not resuscitate; Z68.22 Body mass index [BMI] 22.0-22.9, adult; Z90.11 Acquired absence of right breast and nipple; Z85.3 Personal history of malignant neoplasm of breast; Z92.3 Personal history of irradiation; Z92.21 Personal history of antineoplastic chemotherapy
CPT/HCPCS: 36415; 36569; 36600; 70450; 71045; 76937; 80048; 80053; 80076; 80164; 81001; 82140; 82607; 82746; 82803; 82962; 83605; 83735; 84100; 84132; 84134; 84295; 84443; 84450; 84460; 84478; 85025; 85610; 85730; 87040-91; 95819; 96374; 96375; 99285-25